=== PATIENT | female | born 1980 | race Caucasian/White ===

== ENCOUNTER 2021-06-12 17:42 | Inpatient (IN) | payer BC, OTHER ==
[2021-06-12] MEDS ORDERED: HYDROmorphone 0.5 MG/0.5 ML SYRINGE IVP STA (18:54)
[2021-06-12] MEDS ORDERED: SODIUM CHLORIDE 0.9% 1,000 ML IV STA (18:54)
[2021-06-12] MEDS ORDERED: ONDANSETRON 4 MG/2 ML VIAL IVP STA (18:54)
[2021-06-12 19:37] LABS: AST 33 U/L (14-36); African American GFR (CKD) 32 (>60 ml/min/1.73 sqM); Albumin 3.9 g/dL (3.5-5.0); Alkaline Phosphatase 128 U/L (38-126); Amylase <30 U/L (30-110); Anion Gap 18 mmol/L; Blood Urea Nitrogen 30 mg/dL (7-17); Calcium 8.2 mg/dL (8.4-10.2); Carbon Dioxide 15 mmol/L (22-30); Chloride 99 mmol/L (98-107); Glucose 113 mg/dL (74-99); Lipase <10 U/L (23-300); Non-African American GFR(CKD) 28 (>60 ml/min/1.73 sqM); Potassium 3.1 mmol/L (3.5-5.1); Sodium 132 mmol/L (137-145); Total Bilirubin 0.2 mg/dL (0.2-1.3); Total Protein 6.9 g/dL (6.3-8.2)
[2021-06-12 19:40] LABS: Appearance,Urine Turbid (Clear); Bacteria,Urine Many /hpf; Bilirubin,Urine Negative (Negative); Blood,Urine Moderate (Negative); Color,Urine Yellow; Glucose,Urine (UA) Negative (Negative); Ketones,Urine Negative (Negative); Leukocyte Esterase,Urine Large (Negative); Nitrite,Urine Positive (Negative); Protein,Urine 2+ (Negative); RBC,Urine 30 /hpf (0-5); Specific Gravity,Urine 1.019 (1.001-1.035); Squamous Epithelial Cell,Urine 30 /hpf (0-4); Urobilinogen,Urine <2.0 mg/dL (<2.0); WBC,Urine >182 /hpf (0-5)
[2021-06-12 19:42] LABS: Anisocytosis Slight; HCT 37.6 % (34.0-46.0); Hypochromasia Moderate; MCH 23.3 pg (25.0-35.0); MCHC 31.8 g/dL (31.0-37.0); MCV 73.1 fL (80.0-100.0); Mean Platelet Volume 7.4; Microcytosis Moderate; Platelet Count 280 k/uL (150-450); RBC 5.14 m/uL (3.80-5.40); RDW 18.1 % (11.5-15.5); WBC 28.1 k/uL (3.8-10.6)
[2021-06-12 19:45] LABS: ALT 28 U/L (4-34)
[2021-06-12 19:57] LABS: INR 1.2 (<1.2); Partial Thromboplastin Time 31.4 sec (22.0-30.0)
[2021-06-12] MEDS ORDERED: SODIUM CHLORIDE 0.9% 1,000 ML IV ONE (20:07)
[2021-06-12 20:30] LABS: Band Neutrophils % 10 %; Lymphocytes # (M) 0.28 k/uL (1.0-4.8); Monocytes # (M) 0.56 k/uL (0-1.0); Neutrophils % (M) 87 %; Nucleated Red Blood Cells 0 /100 WBC (0-0); Total Cells Counted 100
[2021-06-12] MEDS ORDERED: LEVOFLOXACIN 500MG-D5W PMX 500 MG in DEXTROSE/WATER 1 100ML.BAG IVPB STA (20:31)
[2021-06-12] MEDS ORDERED: metroNIDAZOLE-NS PMX 500 MG in SALINE 1 100ML.BAG IVPB STA (20:31)
--- NOTE | 2021-06-12 20:37 | CT ---
EXAMINATION TYPE: CT abdomen pelvis w con DATE OF EXAM: 06/12/2021 COMPARISON: None available. HISTORY: Abdominal pain, history of whipple surgery in 2018. Vomiting bile. CT DLP: 676.9 mGycm Automated exposure control for dose reduction was used. TECHNIQUE: Helical acquisition of images was performed from the lung bases through the pelvis. CONTRAST: Performed without Oral Contrast and with IV Contrast, patient injected with 100 mL of Isovue 300. FINDINGS: LUNG BASES: No significant abnormality is appreciated. LIVER/GB: No significant abnormality is appreciated. Hepatic steatosis. PANCREAS: No significant abnormality is seen. SPLEEN: No significant abnormality is seen. ADRENALS: No significant abnormality is seen. KIDNEYS: Moderate right hydronephrosis with 3 mm obstructing calculus at the ureteropelvic junction. Additional multiple nonobstructing bilateral renal calculi measuring up to 5 mm. No left hydronephros is. FREE AIR: No free air is visualized. RETROPERITONEAL ADENOPATHY: None visualized REPRODUCTIVE ORGANS: No significant abnormality is seen URINARY BLADDER: No significant abnormality is seen. PELVIC ADENOPATHY: None visualized. OSSEOUS STRUCTURES: No significant abnormality is seen. BOWEL: Mild fat stranding along the right paracolic gutter. No acute appendicitis. No bowel obstruct ion. Postsurgical changes in the upper abdomen involving the stomach seen. OTHER: Bilateral breast implants noted. IMPRESSION: 3 MM OBSTRUCTING RIGHT UPJ CALCULUS WITH MODERATE HYDRONEPHROSIS. ADDITIONAL MULTIPLE NONOBSTRUCTING BILATERAL RENAL CALCULI. ASSOCIATED MILD INFLAMMATORY CHANGES ALONG THE RIGHT PARACOLIC GUTTER. NO BOWEL OBSTRUCTION.
[2021-06-12] MEDS ORDERED: MORPHINE SULFATE 4 MG/ML SYRINGE IVP STA (20:42)
[2021-06-12] MEDS ORDERED: LORazepam 2 MG/ML INJ IV STA (21:07)
[2021-06-12] MEDS: POTASSIUM CHLORIDE 10 MEQ in WATER FOR INJECTION 1 100ML.BAG IVPB SCH ×2 (21:53→22:53)
[2021-06-12] MEDS ORDERED: NALOXONE 0.4 MG/ML 1 ML VIAL IV PRN (21:54)
[2021-06-12] MEDS ORDERED: ONDANSETRON 4 MG/2 ML VIAL IVP PRN (21:54)
--- NOTE | 2021-06-12 22:10 | ED ---
General Adult HPI - General Chief complaint: Abdominal Pain Stated complaint: abd pain Time Seen by Provider: 06/12/21 18:46 Source: patient, RN notes reviewed, old records reviewed Mode of arrival: ambulatory Limitations: no limitations - History of Present Illness Initial comments: 41-year-old female presenting with generalized abdominal pain, vomiting. Vomiting is bilious. She has a. 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 She did not have follow-up after this procedure. She does not report any hemotherapy her radiation. This was in 2018 and outside hospital. Patient states over the past 3 or 4 days she's had abdominal pain nausea vomiting she has not had anything to eat or drink. She denies fever. - Related Data Allergies Allergy/AdvReac Type Severity Reaction Status Date / Time metoclopramide [From Reglan] Allergy Rash/Hives Verified 06/12/21 17:51 morphine Allergy Rash/Hives Verified 06/12/21 17:51 Penicillins Allergy Anaphylaxis Verified 06/12/21 17:51 Review of Systems ROS Statement: Those systems with pertinent positive or pertinent negative responses have been documented in the HPI. ROS Other: All systems not noted in ROS Statement are negative. Past Medical History Past Surgical History: Section Additional Past Surgical History / Comment(s): Abd. Anastomosis, Truncal Vagatomy, Omental mass excision. Past Psychological History: Anxiety Smoking Status: Never smoker Past Alcohol Use History: None Reported Past Drug Use History: None Reported General Exam Limitations: no limitations General appearance: alert, in no apparent distress Head exam: Present: atraumatic. Absent: normocephalic Eye exam: Present: normal appearance, PERRL ENT exam: Present: mucous membranes dry Neck exam: Present: normal inspection. Absent: tenderness, meningismus Respiratory exam: Present: normal lung sounds bilaterally. Absent: respiratory distress, wheezes Cardiovascular Exam: Present: normal rhythm, tachycardia GI/Abdominal exam: Present: tenderness, guarding. Absent: distended Extremities exam: Present: normal inspection, normal capillary refill. Absent: pedal edema Neurological exam: Present: alert, oriented X3, CN II-XII intact Psychiatric exam: Present: anxious Skin exam: Present: warm, dry, intact, pallor Course Vital Signs 06/12/21 06/12/21 17:47 21:32 Temperature 98.9 F 98.3 F Pulse Rate 119 H 80 Respiratory 20 18 Rate Blood Pressure 109/74 107/71 O2 Sat by Pulse 100 99 Oximetry Medical Decision Making - Medical Decision Making 41-year-old female visiting with generalized abdominal pain nausea vomiting. Workup is initiated for this patient. She is tachycardic and profound dehydrated on exam. She has significant lab abnormalities, she has a white blood cell count 20,000, microcytic anemia. She has potassium 3.1 she is acidotic with a CO2 of 15. She is in acute kidney failure with a BUN of 30 and a creatinine of 2.12. She has a lactic acid of 2.6. Urinalysis is suggestive of significant infection with greater than 182 white cells nitrate positive. I did perform a CT of the abdomen with contrast to evaluate her complaint. This shows a 3 mm obstructing stone with right-sided hydronephrosis. She is started on IV antibiotics. Blood cultures are obtained. She has an ALLERGY to penici llin which is anaphylactic. She started on Levaquin and Flagyl for the possibility of concurrent intra-abdominal issue. I discussed case with the admitting physician Dr. Charles, general surgery Dr. Torres, and urology Dr. Carvajal. The patient will be kept nothing by mouth. NG tube will be inserted for vomiting. Electrolytes are replaced, IV potassium. Continuous IV fluids of been ordered. Patient will be given pain control and antiemetics. - Lab Data Result diagrams: 06/12/21 19:15 06/12/21 19:15 Lab Results 06/12/21 06/12/21 06/12/21 Range/Units 19:15 19:15 19:15 WBC 28.1 H (3.8-10.6) k/uL RBC 5.14 (3.80-5.40) m/uL Hgb 12.0 (11.4-16.0) gm/dL Hct 37.6 (34.0-46.0) % MCV 73.1 L (80.0-100.0) fL MCH 23.3 L (25.0-35.0) pg MCHC 31.8 (31.0-37.0) g/dL RDW 18.1 H (11.5-15.5) % Plt Count 280 (150-450) k/uL MPV 7.4 Neutrophils % (Manual) 87 % Band Neuts % (Manual) 10 % Lymphocytes % (Manual) 1 % Monocytes % (Manual) 2 % Neutrophils # (Manual) 27.20 H (1.3-7.7) k/uL Lymphocytes # (Manual) 0.28 L (1.0-4.8) k/uL Monocytes # (Manual) 0.56 (0-1.0) k/uL Nucleated RBCs 0 (0-0) /100 WBC Manual Slide Review Performed Hypochromasia Moderate Anisocytosis Slight Microcytosis Moderate PT 12.0 (9.0-12.0) sec INR 1.2 H (<1.2) APTT 31.4 H (22.0-30.0) sec Sodium (137-145) mmol/L Potassium (3.5-5.1) mmol/L Chloride (98-107) mmol/L Carbon Dioxide (22-30) mmol/L Anion Gap mmol/L BUN (7-17) mg/dL Creatinine (0.52-1.04) mg/dL Est GFR (CKD-EPI)AfAm (>60 ml/min/1.73 sqM) Est GFR (CKD-EPI)NonAf (>60 ml/min/1.73 sqM) Glucose (74-99) mg/dL Plasma Lactic Acid Benigno (0.7-2.0) mmol/L Calcium (8.4-10.2) mg/dL Total Bilirubin (0.2-1.3) mg/dL AST (14-36) U/L ALT (4-34) U/L Alkaline Phosphatase (38-126) U/L Total Protein (6.3-8.2) g/dL Albumin (3.5-5.0) g/dL Amylase (30-110) U/L Lipase (23-300) U/L Urine Color Yellow Urine Appearance Turbid H (Clear) Urine pH 6.0 (5.0-8.0) Ur Specific Ava 1.019 (1.001-1.035) Urine Protein 2+ H (Negative) Urine Glucose (UA) Negative (Negative) Urine Ketones Negative (Negative) Urine Blood Moderate H (Negative) Urine Nitrite Positive H (Negative) Urine Bilirubin Negative (Negative) Urine Urobilinogen <2.0 (<2.0) mg/dL Ur Leukocyte Esterase Large H (Negative) Urine RBC 30 H (0-5) /hpf Urine WBC >182 H (0-5) /hpf Urine WBC Clumps Many H (None) /hpf Ur Squamous Epith Cells 30 H (0-4) /hpf Urine Bacteria Many H (None) /hpf 06/12/21 06/12/21 Range/Units 19:15 19:15 WBC (3.8-10.6) k/uL RBC (3.80-5.40) m/uL Hgb (11.4-16.0) gm/dL Hct (34.0-46.0) % MCV (80.0-100.0) fL MCH (25.0-35.0) pg MCHC (31.0-37.0) g/dL RDW (11.5-15.5) % Plt Count (150-450) k/uL MPV Neutrophils % (Manual) % Band Neuts % (Manual) % Lymphocytes % (Manual) % Monocytes % (Manual) % Neutrophils # (Manual) (1.3-7.7) k/uL Lymphocytes # (Manual) (1.0-4.8) k/uL Monocytes # (Manual) (0-1.0) k/uL Nucleated RBCs (0-0) /100 WBC Manual Slide Review Hypochromasia Anisocytosis Microcytosis PT (9.0-12.0) sec INR (<1.2) APTT (22.0-30.0) sec Sodium 132 L (137-145) mmol/L Potassium 3.1 L (3.5-5.1) mmol/L Chloride 99 (98-107) mmol/L Carbon Dioxide 15 L (22-30) mmol/L Anion Gap 18 mmol/L BUN 30 H (7-17) mg/dL Creatinine 2.12 H (0.52-1.04) mg/dL Est GFR (CKD-EPI)AfAm 32 (>60 ml/min/1.73 sqM) Est GFR (CKD-EPI)NonAf 28 (>60 ml/min/1.73 sqM) Glucose 113 H (74-99) mg/dL Plasma Lactic Acid Benigno 2.6 H* (0.7-2.0) mmol/L Calcium 8.2 L (8.4-10.2) mg/dL Total Bilirubin 0.2 (0.2-1.3) mg/dL AST 33 (14-36) U/L ALT 28 (4-34) U/L Alkaline Phosphatase 128 H (38-126) U/L Total Protein 6.9 (6.3-8.2) g/dL Albumin 3.9 (3.5-5.0) g/dL Amylase <30 L (30-110) U/L Lipase <10 L (23-300) U/L Urine Color Urine Appearance (Clear) Urine pH (5.0-8.0) Ur Specific Ava (1.001-1.035) Urine Protein (Negative) Urine Glucose (UA) (Negative) Urine Ketones (Negative) Urine Blood (Negative) Urine Nitrite (Negative) Urine Bilirubin (Negative) Urine Urobilinogen (<2.0) mg/dL Ur Leukocyte Esterase (Negative) Urine RBC (0-5) /hpf Urine WBC (0-5) /hpf Urine WBC Clumps (None) /hpf Ur Squamous Epith Cells (0-4) /hpf Urine Bacteria (None) /hpf Critical Care Time Critical Care Time: Yes Total Critical Care Time: 35 Disposition Clinical Impression: Bilious vomiting, Hydronephrosis with renal and ureteral calculous obstruction, Pyelonephritis Disposition: ADMITTED IP TO THIS [facility] Condition: Stable Is patient prescribed a controlled substance at d/c from ED?: No Referrals: Darryl Charles MD [Primary Care Provider] - 1-2 days Decision to Admit Reason: Admit from EC Decision Date: 06/12/21 Decision Time: 22:09
[2021-06-12] MEDS: SODIUM CHLORIDE 0.9% 1,000 ML IV SCH (23:04)
[2021-06-13] MEDS: POTASSIUM CHLORIDE 10 MEQ in WATER FOR INJECTION 1 100ML.BAG IVPB SCH ×2 (00:51→07:17)
[2021-06-13] MEDS: HYDROmorphone 1 MG/ML 1 ML SYRINGE IVP PRN ×4 (01:22→21:44)
[2021-06-13] MEDS: SODIUM CHLORIDE 0.9% 1,000 ML IV SCH (07:17)
[2021-06-13] MEDS: ONDANSETRON 4 MG/2 ML VIAL IVP PRN ×3 (08:20→23:29)
[2021-06-13 09:27] LABS: Anisocytosis Slight; Basophils % (A) 0 %; Eosinophils % (A) 0 %; HGB 10.5 gm/dL (11.4-16.0); Hypochromasia Moderate; Lymphocytes # (A) 0.2 k/uL (1.0-4.8); Lymphocytes % (A) 1 %; MCH 22.5 pg (25.0-35.0); MCHC 30.7 g/dL (31.0-37.0); MCV 73.2 fL (80.0-100.0); Mean Platelet Volume 7.1; Microcytosis Moderate; Monocytes # (A) 0.4 k/uL (0-1.0); Monocytes % (A) 2 %; Neutrophils % (A) 96 %; Platelet Count 242 k/uL (150-450); RBC 4.65 m/uL (3.80-5.40); RDW 18.5 % (11.5-15.5); WBC 20.7 k/uL (3.8-10.6)
--- NOTE | 2021-06-13 09:31 | P.GSCN ---
History of Present Illness Consult date: 06/13/21 History of present illness: This is a 41 yo female presented to the hospital with right flank pain, abdominal pain and nausea and vomiting. Denies any fever/chills. She underwent a CT abdomen/pelvis showed a 3 mm right sided proximal stone with hydronephrosis. Her UA on presentation is concerning for UTI. She denies any dysuria or gross hematuria. Indicates that her pain is 7/10. No previous hx of stones Review of Systems - Constitutional Reports lethargy, Denies chills, Denies fever - EENT Ears, nose, mouth and throat: Denies dysphagia - Cardiovascular Denies chest pain, Denies shortness of breath - Respiratory Denies cough, Denies 7 - Gastrointestinal Reports abdominal pain, Reports nausea, Reports vomiting - Genitourinary Genitourinary: Denies dysuria, Denies hematuria - Integumentary Denies rash, Denies unusual bruising - Neurological Denies headaches, Denies syncope Past Medical History Past Medical History: GERD/Reflux, Hypertension, Thyroid Disorder History of Any Multi-Drug Resistant Organisms: None Reported Past Surgical History: Section Additional Past Surgical History / Comment(s): Abd. Anastomosis, Truncal Vagatomy, Omental mass excision. Past Anesthesia/Blood Transfusion Reactions: No Reported Reaction Past Psychological History: Anxiety, Depression Smoking Status: Never smoker Past Alcohol Use History: None Reported Past Drug Use History: None Reported Medications and Allergies Home Medications Medication Instructions Recorded Confirmed Type ALPRAZolam [Xanax] 0.5 mg PO DAILY 06/12/21 06/12/21 History Atenolol [Tenormin] 50 mg PO BID 06/12/21 06/12/21 History Dextroamphetamine/Amphetamine 20 mg PO BID 06/12/21 06/12/21 History [Adderall] Levothyroxine Sodium [Synthroid] 125 mcg PO DAILY 06/12/21 06/12/21 History buPROPion SR [Wellbutrin SR] 150 mg PO BID 06/12/21 06/12/21 History Allergies Allergy/AdvReac Type Severity Reaction Status Date / Time metoclopramide [From Reglan] Allergy Rash/Hives Verified 06/12/21 23:15 morphine Allergy Rash/Hives Verified 06/12/21 23:15 Penicillins Allergy Anaphylaxis Verified 06/12/21 23:15 Surgical - Exam Vital Signs Temp Pulse Resp BP Pulse Ox 98.9 F 119 H 20 109/74 100 06/12/21 17:47 06/12/21 17:47 06/12/21 17:47 06/12/21 17:47 06/12/21 17:47 - General no distress, moderate pain - Eyes PERRL, normal ocular movement - ENT normal nares, normal mucosa - Respiratory normal expansion, normal respiratory effort - Abdomen Abdomen: soft, tender (RLQ, right flanl ) - Psychiatric oriented to time, oriented to person, oriented to place Results - Labs 06/12/21 19:15 06/12/21 19:15 Abnormal Lab Results - Last 24 Hours (Table) 06/12/21 06/12/21 06/12/21 Range/Units 19:15 19:15 19:15 WBC 28.1 H (3.8-10.6) k/uL MCV 73.1 L (80.0-100.0) fL MCH 23.3 L (25.0-35.0) pg RDW 18.1 H (11.5-15.5) % Neutrophils # (Manual) 27.20 H (1.3-7.7) k/uL Lymphocytes # (Manual) 0.28 L (1.0-4.8) k/uL INR 1.2 H (<1.2) APTT 31.4 H (22.0-30.0) sec Sodium (137-145) mmol/L Potassium (3.5-5.1) mmol/L Carbon Dioxide (22-30) mmol/L BUN (7-17) mg/dL Creatinine (0.52-1.04) mg/dL Glucose (74-99) mg/dL Plasma Lactic Acid Benigno (0.7-2.0) mmol/L Calcium (8.4-10.2) mg/dL Alkaline Phosphatase (38-126) U/L Amylase (30-110) U/L Lipase (23-300) U/L Urine Appearance Turbid H (Clear) Urine Protein 2+ H (Negative) Urine Blood Moderate H (Negative) Urine Nitrite Positive H (Negative) Ur Leukocyte Esterase Large H (Negative) Urine RBC 30 H (0-5) /hpf Urine WBC >182 H (0-5) /hpf Urine WBC Clumps Many H (None) /hpf Ur Squamous Epith Cells 30 H (0-4) /hpf Urine Bacteria Many H (None) /hpf 06/12/21 06/12/21 Range/Units 19:15 19:15 WBC (3.8-10.6) k/uL MCV (80.0-100.0) fL MCH (25.0-35.0) pg RDW (11.5-15.5) % Neutrophils # (Manual) (1.3-7.7) k/uL Lymphocytes # (Manual) (1.0-4.8) k/uL INR (<1.2) APTT (22.0-30.0) sec Sodium 132 L (137-145) mmol/L Potassium 3.1 L (3.5-5.1) mmol/L Carbon Dioxide 15 L (22-30) mmol/L BUN 30 H (7-17) mg/dL Creatinine 2.12 H (0.52-1.04) mg/dL Glucose 113 H (74-99) mg/dL Plasma Lactic Acid Benigno 2.6 H* (0.7-2.0) mmol/L Calcium 8.2 L (8.4-10.2) mg/dL Alkaline Phosphatase 128 H (38-126) U/L Amylase <30 L (30-110) U/L Lipase <10 L (23-300) U/L Urine Appearance (Clear) Urine Protein (Negative) Urine Blood (Negative) Urine Nitrite (Negative) Ur Leukocyte Esterase (Negative) Urine RBC (0-5) /hpf Urine WBC (0-5) /hpf Urine WBC Clumps (None) /hpf Ur Squamous Epith Cells (0-4) /hpf Urine Bacteria (None) /hpf Microbiology - Last 24 Hours (Table) 06/12/21 19:15 Urine Culture - Preliminary Urine,Voided Diabetes panel 06/12/21 Range/Units 19:15 Sodium 132 L (137-145) mmol/L Potassium 3.1 L (3.5-5.1) mmol/L Chloride 99 (98-107) mmol/L Carbon Dioxide 15 L (22-30) mmol/L BUN 30 H (7-17) mg/dL Creatinine 2.12 H (0.52-1.04) mg/dL Glucose 113 H (74-99) mg/dL Calcium 8.2 L (8.4-10.2) mg/dL AST 33 (14-36) U/L ALT 28 (4-34) U/L Alkaline Phosphatase 128 H (38-126) U/L Total Protein 6.9 (6.3-8.2) g/dL Albumin 3.9 (3.5-5.0) g/dL Calcium panel 06/12/21 Range/Units 19:15 Calcium 8.2 L (8.4-10.2) mg/dL Albumin 3.9 (3.5-5.0) g/dL Pituitary panel 06/12/21 Range/Units 19:15 Sodium 132 L (137-145) mmol/L Potassium 3.1 L (3.5-5.1) mmol/L Chloride 99 (98-107) mmol/L Carbon Dioxide 15 L (22-30) mmol/L BUN 30 H (7-17) mg/dL Creatinine 2.12 H (0.52-1.04) mg/dL Glucose 113 H (74-99) mg/dL Calcium 8.2 L (8.4-10.2) mg/dL Adrenal panel 06/12/21 Range/Units 19:15 Sodium 132 L (137-145) mmol/L Potassium 3.1 L (3.5-5.1) mmol/L Chloride 99 (98-107) mmol/L Carbon Dioxide 15 L (22-30) mmol/L BUN 30 H (7-17) mg/dL Creatinine 2.12 H (0.52-1.04) mg/dL Glucose 113 H (74-99) mg/dL Calcium 8.2 L (8.4-10.2) mg/dL Total Bilirubin 0.2 (0.2-1.3) mg/dL AST 33 (14-36) U/L ALT 28 (4-34) U/L Alkaline Phosphatase 128 H (38-126) U/L Total Protein 6.9 (6.3-8.2) g/dL Albumin 3.9 (3.5-5.0) g/dL Assessment and Plan Assessment: 41 yo female admitted with 3 mm right sided ureteral stone with hydronephrosis, Her UA concerning for UTI, WBC 28k on admission. Discussed given her UTI and leuocytosis I recommend proceeding with stent placement. Discussed She will need Ureteroscopy in the future to address her stone, and stent can not stay in permanently. -OR for right sided stent placement -F/U on urine culture, Continue the Levaquin
[2021-06-13 09:33] LABS: Albumin 3.1 g/dL (3.5-5.0); Calcium 8.2 mg/dL (8.4-10.2); Magnesium 1.7 mg/dL (1.6-2.3); Potassium 3.2 mmol/L (3.5-5.1); Total Bilirubin 0.1 mg/dL (0.2-1.3)
[2021-06-13] MEDS ORDERED: IV FLUID CONTINUATION 1,000 ML IV ONE (10:48)
[2021-06-13] MEDS ORDERED: MIDAZOLAM 2 MG/2 ML VIAL IVP ONE (11:19)
[2021-06-13] MEDS ORDERED: LACTATED RINGERS 1,000 ML IV ONE (12:11)
[2021-06-13] MEDS ORDERED: PROPOFOL 10 MG/ML 20 ML VIAL IV ONE (12:20)
[2021-06-13] MEDS ORDERED: fentaNYL (PF) 50 MCG/ML 2 ML AMP ONE (12:20)
[2021-06-13] MEDS ORDERED: SUCCINYLCHOLINE CHLORIDE 100 MG/5 ML SYR IV ONE (12:20)
[2021-06-13] MEDS ORDERED: MIDAZOLAM 2 MG/2 ML VIAL ONE (12:20)
[2021-06-13] MEDS ORDERED: VANCOMYCIN 1,000 MG in SODIUM CHLORIDE 0.9% 250 ML IVPB STA (12:47)
--- NOTE | 2021-06-13 13:03 | FL ---
EXAMINATION TYPE: FL guidance operating room DATE OF EXAM: 06/13/2021 HISTORY: Fluoroscopy time 1 seconds of fluoroscopy provided. IMPRESSION: 1. Fluoroscopy time.
--- NOTE | 2021-06-13 14:15 | P.GSCN ---
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 Sierra. Patient also had prior . Patient presents to the emergency room with complaints of right abdominal flank pain that radiates into the right groin. Patient has had symptoms for the last 5 days. She's had continuous nausea and vomiting. She had a computed tomography scan of the abdomen and pelvis completed showing a 3 mm obstructing right UPJ calculus with moderate hydronephrosis. Additional multiple nonobstructing bilateral renal calculi. Associated mild inflammation to a changes along the right paracolic gutter. No bowel obstruction. Patient seen by urology and she is scheduled for cystoscopy with stent today. Patient denies any fever chills or sweats. She reports having bowel movements. She denies any difficulty with urinating. PAST MEDICAL HISTORY: See list. PAST SURGICAL HISTORY: See list. MEDICATIONS: See list. ALLERGIES: See list. SOCIAL HISTORY: No illicit drug use. REVIEW OF SYSTEMS: CONSTITUTIONAL: Denies fever or chills. HEENT: Denies blurred vision, vision changes, or eye pain. Denies hemoptysis CARDIOVASCULAR: Denies chest pain or pressure. RESPIRATORY: No shortness of breath. GASTROINTESTINAL: See HPI for pertinent findings HEMATOLOGIC: Denies bleeding disorders. GENITOURINARY: Denies any blood in urine or increased urinary frequency. SKIN: Denies pruitis. Denies rash. PHYSICAL EXAM: VITAL SIGNS: Reviewed GENERAL: Well-developed in no acute distress. HEENT: No sclera icterus. Extraocular movements grossly intact. Moist buccal mucosa. Head is atraumatic, normocephalic. No nasal drainage. ABDOMEN: Soft. Nondistended. Right flank tenderness NEUROLOGIC: Alert and oriented. Cranial nerves II through XII grossly intact. LABORATORY DATA: WBC 28.1 down to 20.7 hemoglobin 10.5 Sodium 134 potassium 3.2 creatinine down from 2.12-1.68 Lactic 2.6 down to 1.6 Magnesium 1.7 UA positive for infection IMAGING: CAT scan findings as stated above ASSESSMENT: 1. Right flank pain that radiates to growing likely secondary to right ureteral stone 2. Right ureter stone and hydronephrosis 3. UTI 4. History of Cholelithiasis PLAN: -Continue urological workup -No surgical intervention planned per general surgery -Further workup for cholelithiasis will be completed outpatient -Continue supportive care -Continue antiemetics Thank you for this consultation Physician Digital Director note has been reviewed by physician. Signing provider agrees with the documented findings, assessment, and plan of care. Past Medical History Past Medical History: GERD/Reflux, Hypertension, Thyroid Disorder History of Any Multi-Drug Resistant Organisms: None Reported Past Surgical History: Section Additional Past Surgical History / Comment(s): Abd. Anastomosis, Truncal Vagatomy, Omental mass excision. Past Anesthesia/Blood Transfusion Reactions: No Reported Reaction Past Psychological History: Anxiety, Depression Smoking Status: Never smoker Past Alcohol Use History: None Reported Past Drug Use History: None Reported Medications and Allergies Home Medications Medication Instructions Recorded Confirmed Type ALPRAZolam [Xanax] 0.5 mg PO DAILY 06/12/21 06/12/21 History Atenolol [Tenormin] 50 mg PO BID 06/12/21 06/12/21 History Dextroamphetamine/Amphetamine 20 mg PO BID 06/12/21 06/12/21 History [Adderall] Levothyroxine Sodium [Synthroid] 125 mcg PO DAILY 06/12/21 06/12/21 History buPROPion SR [Wellbutrin SR] 150 mg PO BID 06/12/21 06/12/21 History Allergies Allergy/AdvReac Type Severity Reaction Status Date / Time metoclopramide [From Reglan] Allergy Rash/Hives Verified 06/12/21 23:15 morphine Allergy Rash/Hives Verified 06/12/21 23:15 Penicillins Allergy Anaphylaxis Verified 06/12/21 23:15 Surgical - Exam Vital Signs Temp Pulse Resp BP Pulse Ox 98.9 F 119 H 20 109/74 100 06/12/21 17:47 06/12/21 17:47 06/12/21 17:47 06/12/21 17:47 06/12/21 17:47 Results - Labs 06/13/21 08:42 06/13/21 08:42 Abnormal Lab Results - Last 24 Hours (Table) 06/12/21 06/12/21 06/12/21 Range/Units 19:15 19:15 19:15 WBC 28.1 H (3.8-10.6) k/uL Hgb (11.4-16.0) gm/dL MCV 73.1 L (80.0-100.0) fL MCH 23.3 L (25.0-35.0) pg MCHC (31.0-37.0) g/dL RDW 18.1 H (11.5-15.5) % Neutrophils # (1.3-7.7) k/uL Neutrophils # (Manual) 27.20 H (1.3-7.7) k/uL Lymphocytes # (1.0-4.8) k/uL Lymphocytes # (Manual) 0.28 L (1.0-4.8) k/uL INR 1.2 H (<1.2) APTT 31.4 H (22.0-30.0) sec Sodium (137-145) mmol/L Potassium (3.5-5.1) mmol/L Carbon Dioxide (22-30) mmol/L BUN (7-17) mg/dL Creatinine (0.52-1.04) mg/dL Glucose (74-99) mg/dL Plasma Lactic Acid Benigno (0.7-2.0) mmol/L Calcium (8.4-10.2) mg/dL Total Bilirubin (0.2-1.3) mg/dL Alkaline Phosphatase (38-126) U/L Total Protein (6.3-8.2) g/dL Albumin (3.5-5.0) g/dL Amylase (30-110) U/L Lipase (23-300) U/L Urine Appearance Turbid H (Clear) Urine Protein 2+ H (Negative) Urine Blood Moderate H (Negative) Urine Nitrite Positive H (Negative) Ur Leukocyte Esterase Large H (Negative) Urine RBC 30 H (0-5) /hpf Urine WBC >182 H (0-5) /hpf Urine WBC Clumps Many H (None) /hpf Ur Squamous Epith Cells 30 H (0-4) /hpf Urine Bacteria Many H (None) /hpf 06/12/21 06/12/21 06/13/21 Range/Units 19:15 19:15 08:42 WBC 20.7 H (3.8-10.6) k/uL Hgb 10.5 L (11.4-16.0) gm/dL MCV 73.2 L (80.0-100.0) fL MCH 22.5 L (25.0-35.0) pg MCHC 30.7 L (31.0-37.0) g/dL RDW 18.5 H (11.5-15.5) % Neutrophils # 20.0 H (1.3-7.7) k/uL Neutrophils # (Manual) (1.3-7.7) k/uL Lymphocytes # 0.2 L (1.0-4.8) k/uL Lymphocytes # (Manual) (1.0-4.8) k/uL INR (<1.2) APTT (22.0-30.0) sec Sodium 132 L (137-145) mmol/L Potassium 3.1 L (3.5-5.1) mmol/L Carbon Dioxide 15 L (22-30) mmol/L BUN 30 H (7-17) mg/dL Creatinine 2.12 H (0.52-1.04) mg/dL Glucose 113 H (74-99) mg/dL Plasma Lactic Acid Benigno 2.6 H* (0.7-2.0) mmol/L Calcium 8.2 L (8.4-10.2) mg/dL Total Bilirubin (0.2-1.3) mg/dL Alkaline Phosphatase 128 H (38-126) U/L Total Protein (6.3-8.2) g/dL Albumin (3.5-5.0) g/dL Amylase <30 L (30-110) U/L Lipase <10 L (23-300) U/L Urine Appearance (Clear) Urine Protein (Negative) Urine Blood (Negative) Urine Nitrite (Negative) Ur Leukocyte Esterase (Negative) Urine RBC (0-5) /hpf Urine WBC (0-5) /hpf Urine WBC Clumps (None) /hpf Ur Squamous Epith Cells (0-4) /hpf Urine Bacteria (None) /hpf 06/13/21 Range/Units 08:42 WBC (3.8-10.6) k/uL Hgb (11.4-16.0) gm/dL MCV (80.0-100.0) fL MCH (25.0-35.0) pg MCHC (31.0-37.0) g/dL RDW (11.5-15.5) % Neutrophils # (1.3-7.7) k/uL Neutrophils # (Manual) (1.3-7.7) k/uL Lymphocytes # (1.0-4.8) k/uL Lymphocytes # (Manual) (1.0-4.8) k/uL INR (<1.2) APTT (22.0-30.0) sec Sodium 134 L (137-145) mmol/L Potassium 3.2 L (3.5-5.1) mmol/L Carbon Dioxide 13 L (22-30) mmol/L BUN 30 H (7-17) mg/dL Creatinine 1.68 H (0.52-1.04) mg/dL Glucose 109 H (74-99) mg/dL Plasma Lactic Acid Benigno (0.7-2.0) mmol/L Calcium 8.2 L (8.4-10.2) mg/dL Total Bilirubin 0.1 L (0.2-1.3) mg/dL Alkaline Phosphatase 135 H (38-126) U/L Total Protein 6.0 L (6.3-8.2) g/dL Albumin 3.1 L (3.5-5.0) g/dL Amylase (30-110) U/L Lipase (23-300) U/L Urine Appearance (Clear) Urine Protein (Negative) Urine Blood (Negative) Urine Nitrite (Negative) Ur Leukocyte Esterase (Negative) Urine RBC (0-5) /hpf Urine WBC (0-5) /hpf Urine WBC Clumps (None) /hpf Ur Squamous Epith Cells (0-4) /hpf Urine Bacteria (None) /hpf Microbiology - Last 24 Hours (Table) 06/12/21 21:23 Blood Culture Gram Stain - Preliminary Blood 06/12/21 21:23 Blood Culture Gram Stain - Preliminary Blood 06/12/21 21:23 Blood Culture - Final Blood 06/12/21 21:23 Blood Culture - Final Blood 06/12/21 19:15 Urine Culture - Preliminary Urine,Voided Diabetes panel 06/12/21 06/13/21 Range/Units 19:15 08:42 Sodium 132 L 134 L (137-145) mmol/L Potassium 3.1 L 3.2 L (3.5-5.1) mmol/L Chloride 99 107 (98-107) mmol/L Carbon Dioxide 15 L 13 L (22-30) mmol/L BUN 30 H 30 H (7-17) mg/dL Creatinine 2.12 H 1.68 H (0.52-1.04) mg/dL Glucose 113 H 109 H (74-99) mg/dL Calcium 8.2 L 8.2 L (8.4-10.2) mg/dL AST 33 23 (14-36) U/L ALT 28 16 (4-34) U/L Alkaline Phosphatase 128 H 135 H (38-126) U/L Total Protein 6.9 6.0 L (6.3-8.2) g/dL Albumin 3.9 3.1 L (3.5-5.0) g/dL Calcium panel 06/12/21 06/13/21 Range/Units 19:15 08:42 Calcium 8.2 L 8.2 L (8.4-10.2) mg/dL Albumin 3.9 3.1 L (3.5-5.0) g/dL Pituitary panel 06/12/21 06/13/21 Range/Units 19:15 08:42 Sodium 132 L 134 L (137-145) mmol/L Potassium 3.1 L 3.2 L (3.5-5.1) mmol/L Chloride 99 107 (98-107) mmol/L Carbon Dioxide 15 L 13 L (22-30) mmol/L BUN 30 H 30 H (7-17) mg/dL Creatinine 2.12 H 1.68 H (0.52-1.04) mg/dL Glucose 113 H 109 H (74-99) mg/dL Calcium 8.2 L 8.2 L (8.4-10.2) mg/dL Adrenal panel 06/12/21 06/13/21 Range/Units 19:15 08:42 Sodium 132 L 134 L (137-145) mmol/L Potassium 3.1 L 3.2 L (3.5-5.1) mmol/L Chloride 99 107 (98-107) mmol/L Carbon Dioxide 15 L 13 L (22-30) mmol/L BUN 30 H 30 H (7-17) mg/dL Creatinine 2.12 H 1.68 H (0.52-1.04) mg/dL Glucose 113 H 109 H (74-99) mg/dL Calcium 8.2 L 8.2 L (8.4-10.2) mg/dL Total Bilirubin 0.2 0.1 L (0.2-1.3) mg/dL AST 33 23 (14-36) U/L ALT 28 16 (4-34) U/L Alkaline Phosphatase 128 H 135 H (38-126) U/L Total Protein 6.9 6.0 L (6.3-8.2) g/dL Albumin 3.9 3.1 L (3.5-5.0) g/dL
[2021-06-13] MEDS ORDERED: ALPRAZolam 0.5 MG TAB PO PRN (17:00)
[2021-06-13] MEDS: CEFEPIME 2 GM in SODIUM CHLORIDE 0.9% 100 ML IVPB SCH (17:11)
[2021-06-13] MEDS ORDERED: LEVOFLOXACIN 500MG-D5W PMX 500 MG in DEXTROSE/WATER 1 100ML.BAG IVPB SCH (19:00)
[2021-06-13] MEDS ORDERED: LEVOFLOXACIN 250MG-D5W PMX 250 MG in DEXTROSE/WATER 1 50ML.BAG IVPB SCH (21:00)
--- NOTE | 2021-06-13 21:39 | P.OP ---
Date of Procedure: 06/13/21 Preoperative Diagnosis: right ureteral stone Postoperative Diagnosis: same Procedure(s) Performed: cystoscopy and right stent insertion Implants: 6 Fr X 26 cm stent Anesthesia: ZOILA Surgeon: Markie Carvajal Estimated Blood Loss (ml): 1 Pathology: none sent Condition: stable Disposition: PACU Indications for Procedure: 41 yo female presented to the hospital with UTI and 3 mm right sided urerteral stone. on presentation her WBC was 28 K, she is symptomatic from her stones. Discussed the option of doing stent placement. Discussed risk and benefit of the procedure. discussed risk of stent encrustation and the eventual need for ureteroscopy to address her stone once her UTI is cleared Description of Procedure: Patient was brought to the operating room, general anesthesia was induced. She was prepped and draped in sterile fashion placed in dorsal lithotomy position. Cystoscopy fitted with a 21-Slovenian sheath was inserted per urethra, cystoscopy was performed showed no abnormality within the bladder. Attention was then carried to the right ureteral orifice which was intubated with a sensor wire. Next a ureteral stent was passed over the wire, the proximal curl was visualized on fluoroscopy and the distal curl was visualized using the scope. The bladder was emptied at the end of the case. Patient tolerated the procedure well was taken to PACU in stable condition
[2021-06-13] MEDS: atenoloL 50 MG TAB PO SCH (21:45)
--- NOTE | 2021-06-13 23:06 | P.CONS ---
History of Present Illness - Reason for Consult Consult date: 06/13/21 Bacteremia Requesting physician: Darryl Charles - Chief Complaint right flank pain x 1 day - History of Present Illness History of present illness : Patient is 41-year-old female presented to the ER last night for evaluation of right-sided abdominal/flank pain that started suddenly the day of presentation to the hospital describing the pain to be sharp intensity almost 10 out of 10 with some radiation to the right abdominal area patient did have associated nausea and vomiting patient denies having any fever or any chills with the symptom the patient was in the hospital on arrival to the ER the patient was afebrile did have a low-grade fever 100.2 this afternoon patient did have white count of 28.1 with elevated BUN and creatinine as well as lactic acid patient did have blood cultures drawn which are current growing gram-negative bacilli patient did have a CT of abdominal pelvis moderate right-sided hydronephrosis with 3 mm obstructing calculus at ure teropelvic junction patient subsequently has been evaluated by urology services and the patient is status post cystoscopy with ureteral stent blood cultures came back positive with gram-negative bacilli patient did have a penicillin allergy she was started on Levaquin infectious disease was consulted for further management of antibiotic therapy Review of system: CONSTITUTIONAL: Positive for weakness along with the fever. EYES: No complaint. ENT: No complaint. RESPIRATORY: No complaint. CARDIOVASCULAR: No complaint. GENITOURINARY: As per history of present illness. GASTROINTESTINAL: As per history of present illness. MUSCULOSKELETAL: No complaint. INTEGUMENTARY: No complaint. PSYCHOLOGIC: No complaint. ENDOCRINE: No complaint. NEUROLOGIC: No complaint. Past medical history : Reviewed, documented below Past surgical history : Reviewed, documented below Social history: Reviewed, documented below Medications: Reviewed, as documented below EXAMINATION: Vital sigans= Reviewed and documented below GENERAL DESCRIPTION: Middle-aged male lying in bed, no distress. No tachypnea or accessory muscle of respiration use. HEENT: Shows Pallor , no scleral icterus. Oral mucous membrane is dry. NECK: Trachea central, no thyromegaly. LUNGS: Unlabored breathing. Clear to auscultation anteriorly. No wheeze or crackle. HEART: S1, S2, regular rate and rhythm. ABDOMEN: Soft, right flank tenderness ,no guarding or rigidity EXTREMITIES: No edema of feet. SKIN: No rash, no masses palpable. NEUROLOGICAL: The patient is awake, alert, oriented x3, mood and affect normal. LABS AND RADIOLOGY: Reviewed results see below Assessment : 1-patient with gram-negative bacteremia source is complicated right-sided pyelonephritis in this patient did have right-sided hydronephrosis requiring cystoscopy and ureteral stent placement and will need to cover for enteric gram-negative to be the likely pathogen 2-patient with a penicillin allergy that have limited number of antibiotics safe to use but no history of anaphylaxis Plan: 1-discontinue Levaquin 2-cefepime 2 g every 12 hours 3-gentle IV fluid We will follow on clinical condition and cultures to further adjust medication if needed Past Medical History Past Medical History: GERD/Reflux, Hypertension, Thyroid Disorder History of Any Multi-Drug Resistant Organisms: None Reported Past Surgical History: Section Additional Past Surgical History / Comment(s): Abd. Anastomosis, Truncal Vagatomy, Omental mass excision. Past Anesthesia/Blood Transfusion Reactions: No Reported Reaction Past Psychological History: Anxiety, Depression Smoking Status: Never smoker Past Alcohol Use History: None Reported Past Drug Use History: None Reported Medications and Allergies Home Medications Medication Instructions Recorded Confirmed Type ALPRAZolam [Xanax] 0.5 mg PO DAILY 06/12/21 06/12/21 History Atenolol [Tenormin] 50 mg PO BID 06/12/21 06/12/21 History Dextroamphetamine/Amphetamine 20 mg PO BID 06/12/21 06/12/21 History [Adderall] Levothyroxine Sodium [Synthroid] 125 mcg PO DAILY 06/12/21 06/12/21 History buPROPion SR [Wellbutrin SR] 150 mg PO BID 06/12/21 06/12/21 History Allergies Allergy/AdvReac Type Severity Reaction Status Date / Time metoclopramide [From Reglan] Allergy Rash/Hives Verified 06/12/21 23:15 morphine Allergy Rash/Hives Verified 06/12/21 23:15 Penicillins Allergy Anaphylaxis Verified 06/12/21 23:15 Physical Exam Vitals: Vital Signs Temp Pulse Pulse Pulse Resp BP BP 06/13/21 13:31 101 H 16 130/79 06/13/21 13:15 103 H 16 133/78 06/13/21 13:00 110 H 16 124/74 06/13/21 12:56 99 F 114 H 16 139/73 06/13/21 12:00 98.9 F 101 H 20 133/64 06/13/21 11:27 94 16 141/91 06/13/21 10:54 98.3 F 100 18 150/101 06/13/21 08:00 98.7 F 95 20 128/82 06/13/21 04:00 98.2 F 82 18 118/65 06/12/21 23:30 97.8 F 18 111/78 06/12/21 23:05 86 18 113/70 06/12/21 21:32 98.3 F 80 18 107/71 06/12/21 17:47 98.9 F 119 H 20 109/74 Pulse Ox 06/13/21 13:31 96 06/13/21 13:15 96 06/13/21 13:00 96 06/13/21 12:56 96 06/13/21 12:00 98 06/13/21 11:27 99 06/13/21 10:54 99 06/13/21 08:00 100 06/13/21 04:00 96 06/12/21 23:30 98 06/12/21 23:05 100 06/12/21 21:32 99 06/12/21 17:47 100 Intake and Output 06/13/21 06/13/21 06/13/21 06:59 14:59 22:59 Intake Total 400 Output Total 426 Balance -26 Intake: IV 400 Output: Urine 425 Estimated Blood Loss 1 Other: Voiding Method Toilet Diaper # Voids 1 Weight 65.7 kg Results CBC & Chem 7: 06/13/21 08:42 06/13/21 08:42 Labs: Abnormal Lab Results - Last 24 Hours (Table) 06/12/21 06/12/21 06/12/21 Range/Units 19:15 19:15 19:15 WBC 28.1 H (3.8-10.6) k/uL Hgb (11.4-16.0) gm/dL MCV 73.1 L (80.0-100.0) fL MCH 23.3 L (25.0-35.0) pg MCHC (31.0-37.0) g/dL RDW 18.1 H (11.5-15.5) % Neutrophils # (1.3-7.7) k/uL Neutrophils # (Manual) 27.20 H (1.3-7.7) k/uL Lymphocytes # (1.0-4.8) k/uL Lymphocytes # (Manual) 0.28 L (1.0-4.8) k/uL INR 1.2 H (<1.2) APTT 31.4 H (22.0-30.0) sec Sodium (137-145) mmol/L Potassium (3.5-5.1) mmol/L Carbon Dioxide (22-30) mmol/L BUN (7-17) mg/dL Creatinine (0.52-1.04) mg/dL Glucose (74-99) mg/dL Plasma Lactic Acid Benigno (0.7-2.0) mmol/L Calcium (8.4-10.2) mg/dL Total Bilirubin (0.2-1.3) mg/dL Alkaline Phosphatase (38-126) U/L Total Protein (6.3-8.2) g/dL Albumin (3.5-5.0) g/dL Amylase (30-110) U/L Lipase (23-300) U/L Urine Appearance Turbid H (Clear) Urine Protein 2+ H (Negative) Urine Blood Moderate H (Negative) Urine Nitrite Positive H (Negative) Ur Leukocyte Esterase Large H (Negative) Urine RBC 30 H (0-5) /hpf Urine WBC >182 H (0-5) /hpf Urine WBC Clumps Many H (None) /hpf Ur Squamous Epith Cells 30 H (0-4) /hpf Urine Bacteria Many H (None) /hpf 06/12/21 06/12/21 06/13/21 Range/Units 19:15 19:15 08:42 WBC 20.7 H (3.8-10.6) k/uL Hgb 10.5 L (11.4-16.0) gm/dL MCV 73.2 L (80.0-100.0) fL MCH 22.5 L (25.0-35.0) pg MCHC 30.7 L (31.0-37.0) g/dL RDW 18.5 H (11.5-15.5) % Neutrophils # 20.0 H (1.3-7.7) k/uL Neutrophils # (Manual) (1.3-7.7) k/uL Lymphocytes # 0.2 L (1.0-4.8) k/uL Lymphocytes # (Manual) (1.0-4.8) k/uL INR (<1.2) APTT (22.0-30.0) sec Sodium 132 L (137-145) mmol/L Potassium 3.1 L (3.5-5.1) mmol/L Carbon Dioxide 15 L (22-30) mmol/L BUN 30 H (7-17) mg/dL Creatinine 2.12 H (0.52-1.04) mg/dL Glucose 113 H (74-99) mg/dL Plasma Lactic Acid Benigno 2.6 H* (0.7-2.0) mmol/L Calcium 8.2 L (8.4-10.2) mg/dL Total Bilirubin (0.2-1.3) mg/dL Alkaline Phosphatase 128 H (38-126) U/L Total Protein (6.3-8.2) g/dL Albumin (3.5-5.0) g/dL Amylase <30 L (30-110) U/L Lipase <10 L (23-300) U/L Urine Appearance (Clear) Urine Protein (Negative) Urine Blood (Negative) Urine Nitrite (Negative) Ur Leukocyte Esterase (Negative) Urine RBC (0-5) /hpf Urine WBC (0-5) /hpf Urine WBC Clumps (None) /hpf Ur Squamous Epith Cells (0-4) /hpf Urine Bacteria (None) /hpf 06/13/21 Range/Units 08:42 WBC (3.8-10.6) k/uL Hgb (11.4-16.0) gm/dL MCV (80.0-100.0) fL MCH (25.0-35.0) pg MCHC (31.0-37.0) g/dL RDW (11.5-15.5) % Neutrophils # (1.3-7.7) k/uL Neutrophils # (Manual) (1.3-7.7) k/uL Lymphocytes # (1.0-4.8) k/uL Lymphocytes # (Manual) (1.0-4.8) k/uL INR (<1.2) APTT (22.0-30.0) sec Sodium 134 L (137-145) mmol/L Potassium 3.2 L (3.5-5.1) mmol/L Carbon Dioxide 13 L (22-30) mmol/L BUN 30 H (7-17) mg/dL Creatinine 1.68 H (0.52-1.04) mg/dL Glucose 109 H (74-99) mg/dL Plasma Lactic Acid Benigno (0.7-2.0) mmol/L Calcium 8.2 L (8.4-10.2) mg/dL Total Bilirubin 0.1 L (0.2-1.3) mg/dL Alkaline Phosphatase 135 H (38-126) U/L Total Protein 6.0 L (6.3-8.2) g/dL Albumin 3.1 L (3.5-5.0) g/dL Amylase (30-110) U/L Lipase (23-300) U/L Urine Appearance (Clear) Urine Protein (Negative) Urine Blood (Negative) Urine Nitrite (Negative) Ur Leukocyte Esterase (Negative) Urine RBC (0-5) /hpf Urine WBC (0-5) /hpf Urine WBC Clumps (None) /hpf Ur Squamous Epith Cells (0-4) /hpf Urine Bacteria (None) /hpf Microbiology - Last 24 Hours (Table) 06/12/21 21:23 Blood Culture Gram Stain - Preliminary Blood 06/12/21 21:23 Blood Culture Gram Stain - Preliminary Blood 06/12/21 21:23 Blood Culture - Final Blood 06/12/21 21:23 Blood Culture - Final Blood 06/12/21 19:15 Urine Culture - Preliminary Urine,Voided
[2021-06-14] MEDS ORDERED: Magnesium Replacement Protocol 1 EACH MISC MISCELLANE PRN (01:16)
[2021-06-14] MEDS ORDERED: Potassium Replacement Protocol 1 EACH MISC MISCELLANE PRN ×3 (01:16→18:52)
[2021-06-14] MEDS: HYDROmorphone 1 MG/ML 1 ML SYRINGE IVP PRN ×5 (01:59→21:28)
[2021-06-14] MEDS: MAGNESIUM SULFATE-D5W PMX 1 GM in DEXTROSE/WATER 1 100ML.BAG IVPB SCH ×2 (02:00→03:08)
[2021-06-14] MEDS: SODIUM CHLORIDE 0.9% 1,000 ML IV SCH ×5 (02:01→22:56)
--- NOTE | 2021-06-14 05:00 | HP ---
HISTORY AND PHYSICAL 41-year-old white female with right flank pain, abdominal pain, nausea, vomiting. Denied fever and chills. CT abdomen and pelvis showed a 3 mm right-sided proximal stone with hydronephrosis. She had a stent placed today. She had acute tubular necrosis, acute renal insufficiency. Pain is 7 out of 10. Treated with broad-spectrum antibiotics for a large amount of white cells in the urine and urosepsis with positive blood cultures. Vancomycin was started. Infectious Disease consult pending. REVIEW OF SYSTEMS: Fourteen-point review of systems negative except for mentioned in HPI. PAST MEDICAL HISTORY: GERD, hypertension, hypothyroidism, truncal vagotomy, abdominal anastomosis, omental mass excision , history of anxiety/depression. MEDICATIONS: Home medications include Xanax 0.5 mg daily, Tenormin 50 mg b.i.d., Adderall 20 mg b.i.d., Synthroid 125 mcg daily, Wellbutrin XR 150 b.i.d. ALLERGIES: REGLAN AND MORPHINE AND PENICILLIN. PHYSICAL EXAMINATION: Temperature 99, pulse rate is 100-120, respiratory 18-20, blood pressure 109 over 70s, pulse ox 100 percent. CARDIOVASCULAR S1, S2. LUNGS clear. GI soft. HEMATOLOGY negative Homans. PSYCH: Fair mood and affect. NEUROLOGIC: Alert and oriented x3. LABORATORY DATA: White count is 28, hemoglobin is 12, platelets 280. UA shows greater than 182 white blood cells, 30 red cells, many bacteria, sodium 132, potassium 3.1, BUN is 30, creatinine is 2.12. ASSESSMENT: 1. Status post right stent placement. 2. Urosepsis. 3. Bacteremia secondary to urosepsis. 4. Ureteral stone, hydronephrosis. PLAN: Continue broad-spectrum antibiotics. Wait for repeat blood cultures. Prognosis guarded. MMODL / IJN: [id number] /
[2021-06-14] MEDS: CEFEPIME 2 GM in SODIUM CHLORIDE 0.9% 100 ML IVPB SCH (06:06)
[2021-06-14] MEDS: POTASSIUM CHLORIDE ER 20 MEQ TAB.ER PO SCH ×7 (06:06→21:14)
[2021-06-14] MEDS: ONDANSETRON 4 MG/2 ML VIAL IVP PRN ×2 (07:40→19:02)
--- NOTE | 2021-06-14 07:50 | P.PN ---
Subjective Progress Note Date: 06/14/21 Patient underwent a cysto with right stent placement for an obstructing stone and pyonephrosis. SHe feels much better. His fever is lesss. We discussed the need for cysto stone and stent removal at a later date. Once she has apprpriate oral ab she can go home and fu with Dr Carvajal to arrange this . Objective - Vital Signs Vital signs: Vital Signs Temp 98.5 F 06/14/21 04:00 Pulse 90 06/14/21 04:00 Resp 18 06/14/21 04:00 BP 110/74 06/14/21 04:00 Pulse Ox 99 06/14/21 04:00 Intake & Output 06/13/21 06/14/21 06/14/21 18:59 06:59 18:59 Intake Total 400 Output Total 826 1200 Balance -426 -1200 Weight 66.8 kg Intake: IV 400 Output: Urine 825 1200 Estimated Blood Loss 1 Other: Voiding Method Toilet - Labs CBC & Chem 7: 06/13/21 08:42 06/13/21 08:42 Labs: Abnormal Lab Results - Last 24 Hours (Table) 06/13/21 06/13/21 Range/Units 08:42 08:42 WBC 20.7 H (3.8-10.6) k/uL Hgb 10.5 L (11.4-16.0) gm/dL MCV 73.2 L (80.0-100.0) fL MCH 22.5 L (25.0-35.0) pg MCHC 30.7 L (31.0-37.0) g/dL RDW 18.5 H (11.5-15.5) % Neutrophils # 20.0 H (1.3-7.7) k/uL Lymphocytes # 0.2 L (1.0-4.8) k/uL Sodium 134 L (137-145) mmol/L Potassium 3.2 L (3.5-5.1) mmol/L Carbon Dioxide 13 L (22-30) mmol/L BUN 30 H (7-17) mg/dL Creatinine 1.68 H (0.52-1.04) mg/dL Glucose 109 H (74-99) mg/dL Calcium 8.2 L (8.4-10.2) mg/dL Total Bilirubin 0.1 L (0.2-1.3) mg/dL Alkaline Phosphatase 135 H (38-126) U/L Total Protein 6.0 L (6.3-8.2) g/dL Albumin 3.1 L (3.5-5.0) g/dL Microbiology - Last 24 Hours (Table) 06/12/21 21:23 Blood Culture Gram Stain - Preliminary Blood Blood Culture - Preliminary 06/12/21 21:23 Blood Culture Gram Stain - Preliminary Blood 06/12/21 21:23 Blood Culture - Final Blood 06/12/21 21:23 Blood Culture - Final Blood
[2021-06-14 10:32] LABS: Albumin 2.6 g/dL (3.5-5.0); Calcium 8.1 mg/dL (8.4-10.2); Potassium 2.8 mmol/L (3.5-5.1); Total Bilirubin 0.6 mg/dL (0.2-1.3); Total Protein 5.2 g/dL (6.3-8.2)
[2021-06-14 10:37] LABS: Anisocytosis Slight; Basophils % (A) 0 %; Eosinophils % (A) 0 %; HCT 28.9 % (34.0-46.0); HGB 9.2 gm/dL (11.4-16.0); Hypochromasia Marked; Lymphocytes # (A) 0.4 k/uL (1.0-4.8); Lymphocytes % (A) 3 %; MCH 22.9 pg (25.0-35.0); MCHC 31.7 g/dL (31.0-37.0); MCV 72.2 fL (80.0-100.0); Mean Platelet Volume 7.5; Microcytosis Marked; Monocytes # (A) 0.4 k/uL (0-1.0); Monocytes % (A) 3 %; Neutrophils # (A) 13.3 k/uL (1.3-7.7); Neutrophils % (A) 93 %; Platelet Count 204 k/uL (150-450); RBC 4.01 m/uL (3.80-5.40); RDW 18.5 % (11.5-15.5); WBC 14.2 k/uL (3.8-10.6)
[2021-06-14] MEDS: atenoloL 50 MG TAB PO SCH ×2 (10:58→21:13)
[2021-06-14] MEDS: ALPRAZolam 0.5 MG TAB PO PRN ×2 (10:58→23:13)
--- NOTE | 2021-06-14 14:14 | PN ---
PROGRESS NOTE DATE OF SERVICE: 06/24/2021 REASON FOR FOLLOWUP: Complicated urinary tract infection with bacteremia. INTERVAL HISTORY: Patient is afebrile. The patient is breathing comfortably. The patient's right flank pain has improved. No chest pain, shortness of breath or cough. No abdominal pain. No diarrhea. PHYSICAL EXAMINATION: Blood pressure is 140/85 with a pulse of 87, temperature 99.9. She is 93% on room air. General description is a middle-aged female lying in bed in no distress. Respiratory system: Unlabored breathing, clear to auscultation anteriorly. Heart S1, S2. Regular rate and rhythm. Abdomen soft, no tenderness. LAB DATA: Hemoglobin is 9.1, white count 14.2, BUN of 20, creatinine 1.41. Blood culture with Gram-negative bacilli. DIAGNOSTIC IMPRESSION AND PLAN: Patient with Gram-negative bacteremia and complicated urinary tract infection. This patient is status post cystoscopy with ureteral stent placement. The patient's antibiotic adjusted to Rocephin as per sensitive pathogen and continue supportive care. MMODL / IJN: [id number] /
--- NOTE | 2021-06-14 14:34 | P.PN ---
Subjective Progress Note Date: 06/14/21 CHIEF COMPLAINT: Abdominal pain HISTORY OF PRESENT ILLNESS: Patient is status post stent placement for right ureteral stone by urology. Patient reports that her pain has decreased. She is not vomiting. She did have one episode of vomiting this morning. She did have a low-grade temp of 100.2 yesterday. She is afebrile this morning. She is currently on a clear liquid diet. WBC has decreased from 20.7-14.2 hemoglobin 9.2 sodium 131 potassium 2.8 creatinine 1.41 potassium is being replaced per pro tocol by medicine service. PHYSICAL EXAM: VITAL SIGNS: Reviewed. GENERAL: Well-developed in no acute distress. HEENT: No sclera icterus. Extraocular movements grossly intact. Moist buccal mucosa. Head is atraumatic, normocephalic. ABDOMEN: Soft. Nondistended. Right flank tenderness NEUROLOGIC: Alert and oriented. Cranial nerves II through XII grossly intact. ASSESSMENT: 1. Chronic cholelithiasis 2. Right ureteral stone with hydronephrosis status post stent by urology PLAN: -No surgical intervention planned at this time -Further workup for cholelithiasis will be completed outpatient -Continue antibiotics per ID for pyelonephritis Physician Foreign Collection Clerk note has been reviewed by physician. Signing provider agrees with the documented findings, assessment, and plan of care. Objective - Vital Signs Vital signs: Vital Signs Temp 99.2 F 06/14/21 14:08 Pulse 86 06/14/21 14:08 Resp 18 06/14/21 14:08 BP 147/84 06/14/21 14:08 Pulse Ox 96 06/14/21 14:08 Intake & Output 06/13/21 06/14/21 06/14/21 18:59 06:59 18:59 Intake Total 400 1810 Output Total 826 1200 400 Balance -426 -1200 1410 Weight 66.8 kg Intake: IV 400 Intake, IV Titration 390 Amount Sodium Chloride 0.9% 1, 390 000 ml @ 130 mls/hr IV . [facility] Rx#:[id number] Oral 1420 Output: Urine 825 1200 400 Estimated Blood Loss 1 Other: Voiding Method Toilet Toilet - Labs CBC & Chem 7: 06/14/21 08:44 06/14/21 08:44 Labs: Abnormal Lab Results - Last 24 Hours (Table) 06/14/21 06/14/21 Range/Units 08:44 08:44 WBC 14.2 H (3.8-10.6) k/uL Hgb 9.2 L (11.4-16.0) gm/dL Hct 28.9 L (34.0-46.0) % MCV 72.2 L (80.0-100.0) fL MCH 22.9 L (25.0-35.0) pg RDW 18.5 H (11.5-15.5) % Neutrophils # 13.3 H (1.3-7.7) k/uL Lymphocytes # 0.4 L (1.0-4.8) k/uL Sodium 131 L (137-145) mmol/L Potassium 2.8 L (3.5-5.1) mmol/L Carbon Dioxide 16 L (22-30) mmol/L BUN 20 H (7-17) mg/dL Creatinine 1.41 H (0.52-1.04) mg/dL Calcium 8.1 L (8.4-10.2) mg/dL Total Protein 5.2 L (6.3-8.2) g/dL Albumin 2.6 L (3.5-5.0) g/dL Microbiology - Last 24 Hours (Table) 06/12/21 21:23 Blood Culture Gram Stain - Preliminary Blood Blood Culture - Preliminary 06/12/21 21:23 Blood Culture Gram Stain - Preliminary Blood 06/12/21 21:23 Blood Culture - Final Blood 06/12/21 21:23 Blood Culture - Final Blood
[2021-06-15 00:24] LABS: Magnesium 1.9 mg/dL (1.6-2.3); Potassium 3.6 mmol/L (3.5-5.1)
[2021-06-15] MEDS: HYDROmorphone 1 MG/ML 1 ML SYRINGE IVP PRN ×3 (03:48→16:27)
[2021-06-15] MEDS: ONDANSETRON 4 MG/2 ML VIAL IVP PRN ×3 (03:49→20:20)
[2021-06-15] MEDS: SODIUM CHLORIDE 0.9% 1,000 ML IV SCH ×2 (03:49→20:08)
[2021-06-15 08:23] LABS: Anisocytosis Slight; Basophils % (A) 0 %; Eosinophils # (A) 0.1 k/uL (0-0.7); Eosinophils % (A) 1 %; HCT 31.7 % (34.0-46.0); HGB 9.5 gm/dL (11.4-16.0); Hypochromasia Marked; Lymphocytes # (A) 0.7 k/uL (1.0-4.8); Lymphocytes % (A) 5 %; MCH 22.4 pg (25.0-35.0); MCV 74.6 fL (80.0-100.0); Mean Platelet Volume 7.7; Microcytosis Moderate; Monocytes # (A) 0.8 k/uL (0-1.0); Monocytes % (A) 6 %; Neutrophils % (A) 86 %; Platelet Count 189 k/uL (150-450); RBC 4.26 m/uL (3.80-5.40); RDW 18.7 % (11.5-15.5)
[2021-06-15 08:38] LABS: Albumin 2.7 g/dL (3.5-5.0); Calcium 8.4 mg/dL (8.4-10.2); Magnesium 1.8 mg/dL (1.6-2.3); Potassium 3.5 mmol/L (3.5-5.1); Total Bilirubin 0.3 mg/dL (0.2-1.3); Total Protein 5.5 g/dL (6.3-8.2)
[2021-06-15] MEDS ORDERED: Potassium Replacement Protocol 1 EACH MISC MISCELLANE PRN (09:06)
[2021-06-15] MEDS ORDERED: Magnesium Replacement Protocol 1 EACH MISC MISCELLANE PRN (09:07)
--- NOTE | 2021-06-15 09:16 | PN ---
PROGRESS NOTE This is a 41-year-old white female with urosepsis, status post ureteral stent placement for ureteral hydronephrosis, ureteral stone stenosis. Her abdominal pain is improved. Temperature 99, pulse 87, blood pressure 140s over 80s, O2 is 93 on room air. Cardiovascular S1, S2. Lungs clear. GI soft. Hematology: Negative Homans. Hemoglobin is 9.1, white count 14.2, BUN 20, creatinine 1.41. Blood cultures with Gram- negative bacilli. Patient with Gram-negative bacteremia with urinary tract infection, status post cystoscopy, ureteral stent placement. Remains on Rocephin. Waiting on cultures. Acute tubular necrosis and acute renal insufficiency are improving with hydration. White count is down to 14.2, hemoglobin is 9.2. She has hypokalemia with potassium of 3.2 after replacement, which was 2.8. BUN and creatinine are 20 and 1.41, down from 30 and 1.68. Patient will continue with broad-spectrum antibiotics, fluid rehydration, potassium supplementation. MMODL / IJN: [id number] /
[2021-06-15] MEDS: atenoloL 50 MG TAB PO SCH ×2 (09:22→20:14)
[2021-06-15] MEDS: POTASSIUM CHLORIDE ER 20 MEQ TAB.ER PO SCH ×2 (09:23→12:08)
[2021-06-15] MEDS: MAGNESIUM SULFATE-D5W PMX 1 GM in DEXTROSE/WATER 1 100ML.BAG IVPB SCH ×2 (12:07→15:08)
[2021-06-15] MEDS: ALPRAZolam 0.5 MG TAB PO PRN (12:08)
--- NOTE | 2021-06-15 14:21 | P.PN ---
Subjective Progress Note Date: 06/15/21 CHIEF COMPLAINT: Abdominal pain HISTORY OF PRESENT ILLNESS: Patient is status post stent placement for right ureteral stone by urology. Patient is feeling better today. She reports decreased pain in the right flank. She is on clear liquid diet. Having low- grade temps of 99.9. WBC is 14 hemoglobin 9.5 platelets 189 sodium 134 potassium 3.5 creatinine 1.23 Patient seen and examined with Dr. ye PHYSICAL EXAM: VITAL SIGNS: Reviewed. GENERAL: Well-developed in no acute distress. HEENT: No sclera icterus. Extraocular movements grossly intact. Moist buccal mucosa. Head is atraumatic, normocephalic. ABDOMEN: Soft. Nondistended. Right flank tenderness NEUROLOGIC: Alert and oriented. Cranial nerves II through XII grossly intact. ASSESSMENT: 1. Chronic cholelithiasis 2. Right ureteral stone with hydronephrosis status post stent by urology PLAN: -No surgical intervention planned at this time -Further workup for cholelithiasis will be completed outpatient -Continue antibiotics per ID for pyelonephritis Physician Solar Fabrication Technician note has been reviewed by physician. Signing provider agrees with the documented findings, assessment, and plan of care. Objective - Vital Signs Vital signs: Vital Signs Temp 99.1 F 06/15/21 12:13 Pulse 69 06/15/21 12:13 Resp 14 06/15/21 12:13 BP 124/74 06/15/21 12:13 Pulse Ox 99 06/15/21 12:13 Intake & Output 06/14/21 06/15/21 06/15/21 18:59 06:59 18:59 Intake Total 1810 120 Output Total 400 1200 1950 Balance 1410 -1200 -1830 Weight 67.7 kg Intake: Intake, IV Titration 390 Amount Sodium Chloride 0.9% 1, 390 000 ml @ 130 mls/hr IV . Q7H42M [facility] [place] Rx#:[id number] Oral 1420 120 Output: Urine 400 1200 1950 Other: Voiding Method Toilet Toilet Toilet # Voids 1 # Bowel Movements 0 - Labs CBC & Chem 7: 06/15/21 07:40 06/15/21 07:40 Labs: Abnormal Lab Results - Last 24 Hours (Table) 06/14/21 06/15/21 06/15/21 Range/Units 17:39 07:40 07:40 WBC 14.0 H (3.8-10.6) k/uL Hgb 9.5 L (11.4-16.0) gm/dL Hct 31.7 L (34.0-46.0) % MCV 74.6 L (80.0-100.0) fL MCH 22.4 L (25.0-35.0) pg MCHC 30.0 L (31.0-37.0) g/dL RDW 18.7 H (11.5-15.5) % Neutrophils # 12.0 H (1.3-7.7) k/uL Lymphocytes # 0.7 L (1.0-4.8) k/uL Sodium 134 L (137-145) mmol/L Potassium 3.2 L (3.5-5.1) mmol/L Carbon Dioxide 17 L (22-30) mmol/L Creatinine 1.23 H (0.52-1.04) mg/dL Total Protein 5.5 L (6.3-8.2) g/dL Albumin 2.7 L (3.5-5.0) g/dL Microbiology - Last 24 Hours (Table) 06/12/21 21:23 Blood Culture Gram Stain - Final Blood Blood Culture - Final Klebsiella pneumoniae 06/12/21 19:15 Urine Culture - Preliminary Urine,Voided Gram Neg Bacilli 06/12/21 21:23 Blood Culture Gram Stain - Preliminary Blood Blood Culture - Preliminary
--- NOTE | 2021-06-15 15:52 | PN ---
PROGRESS NOTE DATE OF SERVICE: 06/15/2021 REASON FOR FOLLOWUP: Klebsiella bacteremia secondary to complicated UTI. INTERVAL HISTORY: The patient is afebrile. The patient is feeling better, breathing comfortably. Denies having any chest pain or shortness of breath or cough. No abdominal pain or diarrhea. PHYSICAL EXAMINATION: Blood pressure 124/74 with a pulse of 69, temperature 99.1. She is 99% on room air. GENERAL DESCRIPTION: General description is a middle-aged female lying in bed in no distress. RESPIRATORY SYSTEM: Unlabored breathing. Clear to auscultation anteriorly. HEART: S1, S2. Regular rate and rhythm. ABDOMEN: Soft. No tenderness. LABS: Hemoglobin is 9.4, white count 14, BUN of 16, creatinine 1.23. Blood culture with Klebsiella pneumoniae. DIAGNOSTIC IMPRESSION AND PLAN: Patient with Klebsiella pneumoniae bacteremia secondary to complicated urinary tract infection in this patient who is status post cystoscopy and ureteral stent placement. Patient is covered with Rocephin; to continue. Will repeat the blood culture to document clearance of bacteremia and continue supportive care. MMODL / IJN: [id number] /
[2021-06-15] MEDS: HYDROmorphone 0.5 MG/0.5 ML SYRINGE IVP PRN (20:21)
--- NOTE | 2021-06-15 23:22 | PN ---
PROGRESS NOTE This is a 41-year-old white female with urosepsis with bacteria, Klebsiella pneumoniae. Urine culture and blood culture. Klebsiella bacteremia secondary to UTI status post ureteral stent placement. Creatinine down to 1.4. Fluid rehydration. Continue Dilaudid for pain. Blood cultures 120s over 70s. Pulse 69, temp 99. Cardiovascular: S1, S2. Lungs clear. GI soft. Hematology: Negative Homans. Psych: Fair mood and affect. Hemoglobin is 9.4, white count 14. BUN 16, creatinine 1.23. Klebsiella pneumoniae bacteremia secondary to complicated urinary tract infection, status post cystoscopy. covered with Rocephin. Repeat blood culture bacteremia. Continue supportive care. Monitor her electrolytes and rehydrate. MMNATACHAL / RONELN: [id number] /
[2021-06-16] MEDS: ALPRAZolam 0.5 MG TAB PO PRN ×2 (00:19→16:51)
[2021-06-16] MEDS: HYDROmorphone 1 MG/ML 1 ML SYRINGE IVP PRN ×4 (00:19→15:05)
[2021-06-16] MEDS: SODIUM CHLORIDE 0.9% 1,000 ML IV SCH ×3 (07:02→19:51)
[2021-06-16 07:23] LABS: Anisocytosis Slight; Basophils % (A) 0 %; Eosinophils # (A) 0.1 k/uL (0-0.7); Eosinophils % (A) 1 %; HCT 29.4 % (34.0-46.0); Hypochromasia Marked; Lymphocytes # (A) 0.7 k/uL (1.0-4.8); Lymphocytes % (A) 9 %; MCH 22.7 pg (25.0-35.0); MCHC 30.5 g/dL (31.0-37.0); MCV 74.4 fL (80.0-100.0); Mean Platelet Volume 7.5; Microcytosis Moderate; Monocytes # (A) 0.6 k/uL (0-1.0); Monocytes % (A) 8 %; Neutrophils # (A) 5.5 k/uL (1.3-7.7); Neutrophils % (A) 78 %; Platelet Count 158 k/uL (150-450); RBC 3.96 m/uL (3.80-5.40); RDW 18.5 % (11.5-15.5)
[2021-06-16 07:41] LABS: Albumin 2.5 g/dL (3.5-5.0); Calcium 8.2 mg/dL (8.4-10.2); Magnesium 1.7 mg/dL (1.6-2.3); Potassium 3.2 mmol/L (3.5-5.1); Total Bilirubin 0.3 mg/dL (0.2-1.3); Total Protein 5.1 g/dL (6.3-8.2)
[2021-06-16] MEDS ORDERED: Potassium Replacement Protocol 1 EACH MISC MISCELLANE PRN (08:01)
[2021-06-16] MEDS: POTASSIUM CHLORIDE ER 20 MEQ TAB.ER PO SCH ×2 (08:16→10:41)
[2021-06-16] MEDS: MAGNESIUM SULFATE-D5W PMX 1 GM in DEXTROSE/WATER 1 100ML.BAG IVPB SCH ×2 (08:16→10:41)
[2021-06-16] MEDS: ONDANSETRON 4 MG/2 ML VIAL IVP PRN (08:16)
[2021-06-16] MEDS: atenoloL 50 MG TAB PO SCH ×2 (08:16→19:51)
[2021-06-16 08:22] LABS: C Reactive Protein 16.4 mg/dL (<1.0)
[2021-06-16] MEDS: HYDROmorphone 0.5 MG/0.5 ML SYRINGE IVP PRN ×2 (19:50→23:47)
[2021-06-17] MEDS: traMADol 50 MG TAB PO PRN (03:15)
[2021-06-17] MEDS: SODIUM CHLORIDE 0.9% 1,000 ML IV SCH ×3 (03:19→18:49)
[2021-06-17] MEDS: HYDROmorphone 0.5 MG/0.5 ML SYRINGE IVP PRN ×4 (06:59→21:50)
--- NOTE | 2021-06-17 07:14 | PN ---
PROGRESS NOTE DATE OF SERVICE: 06/16/2021. REASON FOR FOLLOWUP: Complicated urinary tract infection with bacteremia. INTERVAL HISTORY: Patient is afebrile. The patient is breathing comfortably. The patient denies having any chest pain. No shortness of breath or cough. Abdominal pain is controlled. No nausea, vomiting or diarrhea. PHYSICAL EXAMINATION: Blood pressure 162/90, pulse of 78, temperature of 98.5. She is 100% on room air. General description is a middle-aged female lying in bed in no distress. Respiratory system: Unlabored breathing, clear to auscultation anteriorly. Heart S1, S2. Regular rate and rhythm. Abdomen soft, no tenderness. LABS: Hemoglobin 9, white count 7.0, BUN of 12, creatinine 1.0. DIAGNOSTIC IMPRESSION AND PLAN: Patient with Klebsiella pneumoniae, urinary tract infection complicated status post cystoscopy and ureteral stent placement. Patient is covered with Rocephin. Finish therapy with oral Ceftin and close outpatient followup. MMODL / IJN: [id number] /
--- NOTE | 2021-06-17 07:15 | PN ---
PROGRESS NOTE 41-year-old white female remains on broad-spectrum ceftriaxone due to Klebsiella pneumonia, sepsis secondary to UTI with ureteral stenosis. Talked about weaning down on her pain medicines. Her white count is now down from 14 down to 7, hemoglobin is 9.5 down to 9. Sodium is 136 and potassium is 3.2, CRP 16.4. Blood pressure is a bit high, up to the 160s over 90s tonight. Possibly increase her blood pressure medications. Wean down the IV pain medication. Possible discharge home soon. MMODL / IJN: [id number] /
[2021-06-17] MEDS: atenoloL 50 MG TAB PO SCH ×2 (08:40→20:16)
[2021-06-17] MEDS: ALPRAZolam 0.5 MG TAB PO PRN ×2 (08:43→20:16)
[2021-06-17 10:15] LABS: Anisocytosis Slight; Basophils % (A) 0 %; Eosinophils # (A) 0.1 k/uL (0-0.7); Eosinophils % (A) 2 %; HCT 26.9 % (34.0-46.0); HGB 8.4 gm/dL (11.4-16.0); Hypochromasia Marked; Lymphocytes # (A) 0.8 k/uL (1.0-4.8); Lymphocytes % (A) 13 %; MCHC 31.3 g/dL (31.0-37.0); MCV 73.6 fL (80.0-100.0); Microcytosis Moderate; Monocytes # (A) 0.4 k/uL (0-1.0); Monocytes % (A) 6 %; Neutrophils # (A) 4.4 k/uL (1.3-7.7); Neutrophils % (A) 75 %; Platelet Count 193 k/uL (150-450); RBC 3.66 m/uL (3.80-5.40); RDW 18.4 % (11.5-15.5); WBC 5.9 k/uL (3.8-10.6)
[2021-06-17 10:29] LABS: ALT 22 U/L (4-34); AST 30 U/L (14-36); African American GFR (CKD) >90 (>60 ml/min/1.73 sqM); Albumin 2.5 g/dL (3.5-5.0); Alkaline Phosphatase 105 U/L (38-126); Anion Gap 8 mmol/L; Blood Urea Nitrogen 9 mg/dL (7-17); Carbon Dioxide 22 mmol/L (22-30); Chloride 107 mmol/L (98-107); Glucose 98 mg/dL (74-99); Magnesium 1.6 mg/dL (1.6-2.3); Non-African American GFR(CKD) >90 (>60 ml/min/1.73 sqM); Sodium 137 mmol/L (137-145); Total Bilirubin 0.2 mg/dL (0.2-1.3); Total Protein 5.1 g/dL (6.3-8.2)
[2021-06-17] MEDS ORDERED: Potassium Replacement Protocol 1 EACH MISC MISCELLANE PRN (10:56)
[2021-06-17] MEDS: MAGNESIUM SULFATE-D5W PMX 1 GM in DEXTROSE/WATER 1 100ML.BAG IVPB SCH ×2 (11:11→12:18)
[2021-06-17] MEDS: POTASSIUM CHLORIDE ER 20 MEQ TAB.ER PO SCH ×3 (13:44→18:53)
--- NOTE | 2021-06-17 16:52 | PN ---
PROGRESS NOTE DATE OF SERVICE: 06/17/2021 REASON FOR FOLLOWUP: Complicated urinary tract infection with Klebsiella. INTERVAL HISTORY: The patient is afebrile. The patient is breathing comfortably. The patient's flank pain has improved. No nausea, no vomiting. No chest pain, shortness of breath or cough and no diarrhea. PHYSICAL EXAMINATION: Blood pressure 137/69 with a pulse of 73, temperature 97.9. She is 98% on room air. GENERAL DESCRIPTION: General description is a middle-aged female lying in bed in no distress. RESPIRATORY SYSTEM: Unlabored breathing. Clear to auscultation anteriorly. HEART: S1, S2. Regular rate and rhythm. ABDOMEN: Soft. No tenderness. LABS: Hemoglobin 8.9, white count 5.9. BUN of 9, creatinine 0.80. DIAGNOSTIC IMPRESSION AND PLAN: Patient with Klebsiella pneumoniae urinary tract infection and bacteremia. Overall clinical improvement on Rocephin. Transition to oral Cipro for another 10 days on discharge and close outpatient followup. MMODL / IJN: [id number] /
--- NOTE | 2021-06-17 19:19 | PN ---
PROGRESS NOTE This is a 41-year-old white female. Hemoglobin dropped from 9 to 8.4. She says she has no signs of bleeding. Potassium is low at 3.0. Sodium 137. Albumin is low at 2.5. Check Klebsiella pneumoniae. Second set of blood cultures is negative. Urine culture has been treated with antibiotics. Her pain is better. Cardiovascular S1, S2. Lungs clear. GI soft. Hypokalemia, Klebsiella pneumoniae, Klebsiella UTI and sepsis. Clinical improvement on Rocephin. Switch to oral Cipro for another 10 days on discharge. We will replace potassium. Ambulate. Possible discharge home in the next 24-48 hours. MMODL / IJN: [id number] /
[2021-06-18] MEDS: SODIUM CHLORIDE 0.9% 1,000 ML IV SCH ×4 (03:20→22:42)
[2021-06-18] MEDS: HYDROmorphone 0.5 MG/0.5 ML SYRINGE IVP PRN ×4 (03:23→16:51)
[2021-06-18] MEDS: atenoloL 50 MG TAB PO SCH ×2 (08:33→20:44)
[2021-06-18] MEDS: POTASSIUM CHLORIDE ER 20 MEQ TAB.ER PO SCH ×3 (08:33→10:51)
[2021-06-18] MEDS: ALPRAZolam 0.5 MG TAB PO PRN ×2 (08:37→20:44)
[2021-06-18 08:41] LABS: Anisocytosis Slight; Basophils % (A) 0 %; Eosinophils # (A) 0.2 k/uL (0-0.7); Eosinophils % (A) 2 %; HCT 28.6 % (34.0-46.0); HGB 8.8 gm/dL (11.4-16.0); Hypochromasia Marked; Lymphocytes % (A) 13 %; MCHC 30.9 g/dL (31.0-37.0); MCV 74.5 fL (80.0-100.0); Mean Platelet Volume 7.3; Microcytosis Moderate; Monocytes # (A) 0.4 k/uL (0-1.0); Monocytes % (A) 5 %; Neutrophils % (A) 76 %; Platelet Count 265 k/uL (150-450); RBC 3.84 m/uL (3.80-5.40); RDW 18.2 % (11.5-15.5); WBC 7.8 k/uL (3.8-10.6)
[2021-06-18 09:03] LABS: African American GFR (CKD) >90 (>60 ml/min/1.73 sqM); Anion Gap 9 mmol/L; Blood Urea Nitrogen 6 mg/dL (7-17); Calcium 8.1 mg/dL (8.4-10.2); Carbon Dioxide 22 mmol/L (22-30); Chloride 107 mmol/L (98-107); Glucose 92 mg/dL (74-99); Magnesium 1.7 mg/dL (1.6-2.3); Non-African American GFR(CKD) >90 (>60 ml/min/1.73 sqM); Potassium 3.2 mmol/L (3.5-5.1); Sodium 138 mmol/L (137-145)
[2021-06-18] MEDS: MAGNESIUM SULFATE-D5W PMX 1 GM in DEXTROSE/WATER 1 100ML.BAG IVPB SCH ×2 (09:19→10:50)
[2021-06-18] MEDS: traMADol 50 MG TAB PO PRN ×2 (14:26→20:44)
--- NOTE | 2021-06-18 17:03 | PN ---
PROGRESS NOTE DATE OF SERVICE: 06/18/2021 REASON FOR FOLLOWUP: E coli UTI and complicated UTI INTERVAL HISTORY: The patient is afebrile. The patient says she is not feeling as good today. The patient denies having any chest pain or shortness of breath or cough. No vomiting. No abdominal pain or diarrhea. PHYSICAL EXAMINATION: Blood pressure 151/67, pulse of 65, temperature 98.2. She is 93% on 2 L nasal cannula. GENERAL DESCRIPTION: General description is a middle-aged female up in the bed in no distress. RESPIRATORY SYSTEM: Unlabored breathing. Clear to auscultation anteriorly. HEART: S1, S2. Regular rate and rhythm. ABDOMEN: Soft. No tenderness. LABS: Hemoglobin is 8.9, white count BUN of 6, creatinine 0.66. Blood culture repeat has been negative. DIAGNOSTIC IMPRESSION AND PLAN: Patient with Klebsiella pneumoniae bacteremia secondary to complicated urinary tract infection, status post cystoscopy and ureteral stent placement. She is on Rocephin; to finish therapy with oral Cipro and close outpatient followup. MMODL / IJN: [id number] /
--- NOTE | 2021-06-18 19:35 | PN ---
PROGRESS NOTE Microbiology: repeat blood culture negative for 48 hours. She is treated for Klebsiella pneumoniae sepsis and bacteremia positive. Potassium is low at 3.2 today despite adding potassium to her diet. Hemoglobin is stable at 8.8. Sodium was normal. BUN and creatinine are improved, down to 6 and 0.66. Cardiovascular S1, S2. Lungs are clear. GI soft. Hematology: Negative Homans. ASSESSMENT: 1. Obstructing hydronephrosis. 2. Pyelonephritis. 3. Acute tubular necrosis. 4. Klebsiella bacteremia pneumoniae. Stent placement. She is on Rocephin. Possibly switch to Cipro. Possibly discharge home tonight or tomorrow, pending one more day of blood cultures. MMODL / IJN: [id number] /
[2021-06-19] MEDS: traMADol 50 MG TAB PO PRN ×2 (02:49→08:46)
[2021-06-19 03:19] VITALS: PULSE 72
[2021-06-19 07:53] LABS: Anisocytosis Slight; Basophils % (A) 0 %; Eosinophils # (A) 0.1 k/uL (0-0.7); Eosinophils % (A) 2 %; HCT 29.4 % (34.0-46.0); HGB 9.1 gm/dL (11.4-16.0); Hypochromasia Marked; Lymphocytes # (A) 1.1 k/uL (1.0-4.8); Lymphocytes % (A) 12 %; MCH 23.1 pg (25.0-35.0); MCV 74.4 fL (80.0-100.0); Mean Platelet Volume 7.8; Microcytosis Moderate; Monocytes # (A) 0.4 k/uL (0-1.0); Monocytes % (A) 4 %; Neutrophils # (A) 7.1 k/uL (1.3-7.7); Neutrophils % (A) 80 %; Platelet Count 370 k/uL (150-450); RBC 3.95 m/uL (3.80-5.40); RDW 18.5 % (11.5-15.5); WBC 8.8 k/uL (3.8-10.6)
[2021-06-19 08:13] LABS: ALT 19 U/L (4-34); AST 24 U/L (14-36); African American GFR (CKD) >90 (>60 ml/min/1.73 sqM); Alkaline Phosphatase 112 U/L (38-126); Anion Gap 8 mmol/L; Blood Urea Nitrogen 5 mg/dL (7-17); Calcium 8.3 mg/dL (8.4-10.2); Carbon Dioxide 25 mmol/L (22-30); Chloride 106 mmol/L (98-107); Glucose 95 mg/dL (74-99); Non-African American GFR(CKD) >90 (>60 ml/min/1.73 sqM); Potassium 3.5 mmol/L (3.5-5.1); Sodium 139 mmol/L (137-145); Total Bilirubin 0.3 mg/dL (0.2-1.3); Total Protein 5.9 g/dL (6.3-8.2)
[2021-06-19] MEDS: atenoloL 50 MG TAB PO SCH (08:45)
[2021-06-19] MEDS: ALPRAZolam 0.5 MG TAB PO PRN (08:46)
[2021-06-19] MEDS: POTASSIUM CHLORIDE ER 20 MEQ TAB.ER PO SCH (08:46)
[2021-06-19 10:59] VITALS: BP 183/90; RESP 18; TEMP 98.1
--- NOTE | 2021-06-19 12:39 | DS ---
DISCHARGE SUMMARY DISCHARGE MEDICATIONS: Discharged home on Cipro 500 b.i.d., potassium chloride 20 mEq daily Neurontin 100 b.i.d., tramadol 50 q.i.d. p.r.n., Wellbutrin XR 150 b.i.d., levothyroxine 125 mcg daily, Xanax 0.5 mg daily, Adderall 20 mg b.i.d. CONDITION: Stable. PROGNOSIS: Guarded. Ambulate as tolerated. DISCHARGE DIAGNOSES: 1. Hydronephrosis, right with renal and ureteral calculus with right-sided pyelonephritis. 2. Sepsis with Klebsiella pneumoniae bacteremia. 3. Hypertension acceleration. 4. The patient was admitted with ureteral stenosis, severe pyelonephritis. A stent was placed for ureteral stone. Started on broad-spectrum antibiotics for severe pyelonephritis with positive blood cultures and Klebsiella pneumonia bacteremia. Patient stabilized over the next few days. Hypokalemia was corrected with potassium supplementations. Pain control. Fluid rehydration. Diet was advanced. The patient was then discharged home once the repeat blood cultures are negative for 72 hours. MMODL / IJN: [id number] /
--- NOTE | 2021-06-19 13:56 | PN ---
PROGRESS NOTE DATE OF SERVICE: 06/19/2021 REASON FOR FOLLOWUP: Klebsiella UTI and bacteremia. INTERVAL HISTORY: The patient is afebrile. The patient is feeling better, breathing comfortably. No chest pain or cough. No abdominal pain or diarrhea. PHYSICAL EXAMINATION: Blood pressure 183/90 with a pulse of 92, temperature 98.1. She is 100% on room air. GENERAL DESCRIPTION: General description is a middle-aged female lying in bed in no distress. RESPIRATORY SYSTEM: Unlabored breathing. Clear to auscultation anteriorly. HEART: S1, S2. Regular rate and rhythm. ABDOMEN: Soft. No tenderness. LABS: Hemoglobin is 9.9, white count 8.8, BUN of 5, creatinine 0.62. DIAGNOSTIC IMPRESSION AND PLAN: Patient with Klebsiella urinary tract infection and bacteremia; seems to have shown overall clinical improvement. To finish therapy with oral Cipro and close outpatient followup. MMODL / IJN: [id number] /
[2021-06-19 14:38] VITALS: BMI 23.6
[2021-06-19] MEDS ORDERED: CIPROFLOXACIN HCL 500 MG TAB PO SCH (21:00)
== END 2021-06-19 14:34 | disposition home or self-care (01) | DRG 853 ==
LOC: EC 17:42 → 3SCARD 21:54
PROVIDERS: ADMIT Family Medicine; ATTEND Family Medicine
PROC: 0T768DZ Dilation of Right Ureter with Intraluminal Device, Via Natural or Artificial Opening Endoscopic (ICD-10-PCS; principal; 2021-06-12)
PROC: 0T9B80Z Drainage of Bladder with Drainage Device, Via Natural or Artificial Opening Endoscopic (ICD-10-PCS; 2021-06-12)
DX: A41.51 Sepsis due to Escherichia coli [E. coli] (principal); N17.0 Acute kidney failure with tubular necrosis; N13.6 Pyonephrosis; E87.2 Acidosis; A41.59 Other Gram-negative sepsis; K80.20 Calculus of gallbladder without cholecystitis without obstruction; I10 Essential (primary) hypertension; D50.9 Iron deficiency anemia, unspecified; E03.9 Hypothyroidism, unspecified; E87.6 Hypokalemia; K21.9 Gastro-esophageal reflux disease without esophagitis; F32.9 Major depressive disorder, single episode, unspecified; F41.9 Anxiety disorder, unspecified; Z79.899 Other long term (current) drug therapy; Z79.890 Hormone replacement therapy; Z88.0 Allergy status to penicillin; Z87.11 Personal history of peptic ulcer disease; Z87.442 Personal history of urinary calculi; Z90.411 Acquired partial absence of pancreas; Z88.5 Allergy status to narcotic agent; Z88.8 Allergy status to other drugs, medicaments and biological substances
CPT/HCPCS: 36415; 74177; 80048; 80053; 81001; 81025; 82150; 83605; 83690; 83735; 84132; 85025; 85610; 85730; 86140; 87040; 87077; 87086; 87186; 96361; 96365; 96375; 99291

== ENCOUNTER 2021-06-25 06:25 | Day surgery (SDC) | payer SELFPAY ==
[2021-06-21 10:11] VITALS: BMI 22.5
--- NOTE | 2021-06-24 18:00 | P.HPIHPCON ---
History of Present Illness H&P Date: 06/24/21 This is a 41 yo female with hx of 3 mm right sided proximal stone and multiple non-obstructive stones. She was septic secondary to her stone and underwent stent placement on 06/13. She is currently on antibiotics. She presents today to address her stone. discussed with her risk of bleeding, infection and ureteral injury. She understood all risks and agreed to proceed with right sided ureteroscopy with holmium laser, stone basketting and stent removal Consent for Procedure: I have explained the operation/procedure to the patient, including the risks, benefits, side effects, alternative therapies (including not receiving the proposed treatment or service), the likelihood of the patient achieving his/her goals, and potential recuperation problems for the procedure/sedation/analgesia, as well as any blood products, if indicated. I also explained to the patient the risks, benefits and side effects of the alternatives, as well as the risks related to not receiving the proposed procedure, care, treatment, or services. - Constitutional Constitutional: Denies chills, Denies fever - EENT Ears, nose, mouth and throat: Denies headache, Denies sore throat - Cardiovascular Cardiovascular: Denies chest pain, Denies shortness of breath - Respiratory Respiratory: Denies cough, Denies 7 - Genitourinary (Female) Genitourinary: Denies dysuria, Denies hematuria Past Medical History Past Medical History: GERD/Reflux, Hypertension, Thyroid Disorder Additional Past Medical History / Comment(s): kidney stones. septic during last hospital stay 06/12/21-06/19/21. Hx PUD History of Any Multi-Drug Resistant Organisms: None Reported Past Surgical History: Section Additional Past Surgical History / Comment(s): Abd. Anastomosis, Truncal Vagatomy, Omental mass excision.partial gastrectomy, whipple procedure. kidney stent Past Anesthesia/Blood Transfusion Reactions: No Reported Reaction, Motion Sickness Smoking Status: Never smoker - Past Family History Mother Family Medical History: No Reported History Medications and Allergies Home Medications Medication Instructions Recorded Confirmed Type ALPRAZolam [Xanax] 0.5 mg PO DAILY 06/12/21 06/21/21 History Dextroamphetamine/Amphetamine 20 mg PO BID 06/12/21 06/21/21 History [Adderall] Levothyroxine Sodium [Synthroid] 125 mcg PO DAILY 06/12/21 06/21/21 History buPROPion SR [Wellbutrin SR] 150 mg PO BID 06/12/21 06/21/21 History Ciprofloxacin HCl [Cipro] 500 mg PO BID 10 Days #20 tab 06/19/21 06/21/21 Rx Potassium Chloride ER [K-Dur 20] 20 meq PO DAILY 30 Days #30 tablet 06/19/21 06/21/21 Rx atenoloL [Tenormin] 100 mg PO BID 30 Days #60 tab 06/19/21 06/21/21 Rx traMADol HCl [Ultram] 50 mg PO QID PRN tab 06/19/21 06/21/21 Rx Allergies Allergy/AdvReac Type Severity Reaction Status Date / Time metoclopramide [From Reglan] Allergy Rash/Hives Verified 06/21/21 09:56 morphine Allergy Rash/Hives Verified 06/21/21 09:56 Penicillins Allergy Anaphylaxis Verified 06/21/21 09:56 Surgical - Exam - General well developed, well nourished, no distress - Respiratory normal expansion, normal respiratory effort
[~2021-06-25 06:25] MED LIST: CIPROFLOXACIN/DEXTROSE PMX 400 MG in DEXTROSE/WATER 1 200ML.BAG IVPB PRN
[2021-06-25] MEDS ORDERED: MIDAZOLAM 2 MG/2 ML VIAL IV PRN (06:53)
[2021-06-25] MEDS ORDERED: ONDANSETRON 4 MG/2 ML VIAL IVP ONE ×2 (06:53→09:27)
[2021-06-25] MEDS ORDERED: SCOPOLAMINE 1.5MG/72HR PATCH TRANSDERM ONE (06:53)
[2021-06-25] MEDS ORDERED: DEXAMETHASONE SOD PHOSPHATE 4 MG/ML 1 ML VIAL IV ONE (06:53)
[2021-06-25] MEDS ORDERED: HYDROmorphone 0.5 MG/0.5 ML SYRINGE IVP PRN (07:00)
[2021-06-25] MEDS: LACTATED RINGERS 1,000 ML IV SCH ×2 (07:19→07:58)
[2021-06-25] MEDS ORDERED: KETOROLAC 15 MG/ML 1 ML VIAL ONE (07:58)
[2021-06-25] MEDS ORDERED: fentaNYL (PF) 50 MCG/ML 2 ML AMP ONE (07:58)
[2021-06-25] MEDS ORDERED: SUCCINYLCHOLINE CHLORIDE 100 MG/5 ML SYR IV ONE (07:58)
[2021-06-25] MEDS ORDERED: MIDAZOLAM 2 MG/2 ML VIAL ONE (07:58)
[2021-06-25] MEDS ORDERED: LIDOCAINE 1% INJ 10MG/ML (20 ML MDV) ONE (07:58)
[2021-06-25] MEDS ORDERED: PROPOFOL 10 MG/ML 20 ML VIAL IV ONE (07:58)
[2021-06-25] MEDS ORDERED: SODIUM CHLORIDE 0.9% 100 ML with GENTAMICIN 80 MG IV ONE ×2 (08:17)
--- NOTE | 2021-06-25 08:23 | XR ---
KUB HISTORY: Right ureteral calculus Frontal KUB submitted on 2 images, comparison to CT 06/12/2021 Right-sided double-J ureteral stent is in place. Phlebolith noted in left hemipelvis. Multiple calcif ications are present within the right kidney, at least 3-4 calcifications, the largest measures appro ximately 1 cm, the previously identified right ureteral calcification may be within the right renal c ollecting system as compared to prior exam. Postop changes are noted in the left upper quadrant. No e vident bowel obstruction or pneumoperitoneum. IMPRESSION: Right-sided nephrolithiasis, double-J stent
[2021-06-25 09:12] VITALS: TEMP 97
[2021-06-25 09:24] VITALS: RESP 16
[2021-06-25] MEDS ORDERED: ONDANSETRON 4 MG/2 ML VIAL ONE (09:24)
[2021-06-25 10:03] VITALS: BP 149/92; PULSE 61
--- NOTE | 2021-06-25 10:17 | P.OP ---
Date of Procedure: 06/25/21 Preoperative Diagnosis: Right ureteral, renal stones Postoperative Diagnosis: Right renal stones Procedure(s) Performed: Cystoscopy, right ureteroscopy, holmium lithotripsy, stone basketing and stent removal Implants: None Anesthesia: LEONORA Surgeon: Markie Carvajal Estimated Blood Loss (ml): 1 Pathology: other (Right renal stones) Condition: stable Disposition: PACU Indications for Procedure: This is a 41 yo female with hx of 3 mm right sided proximal stone and multiple non-obstructive stones. She was septic secondary to her stone and underwent stent placement on 06/13. She is currently on antibiotics. She presents today to address her stone. discussed with her risk of bleeding, infection and ureteral injury. She understood all risks and agreed to proceed with right sided ureteroscopy with holmium laser, stone basketting and stent removal Operative Findings: Multiple stones within the lower pole of the kidney, no ureteral stone was visualized Description of Procedure: Patient was brought to the operating room, general anesthesia was induced. She was prepped and draped in sterile fashion a placement dorsal lithotomy position. A cystoscopy fitted with a 21-[place]oz[place] sheath was inserted per urethra, cystoscopy was performed showed no abnormality within the bladder. Attention was then carried to the right ureteral orifice, and a semirigid ureteroscope was advanced through the ureteral orifice without difficulties. The scope was advanced all the way up to the proximal ureter, no stone was visualized along the course a ureter, pullback ureteroscopy was performed which showed no injury to the ureter or any ureteral stone. Next ureteroscope was withdrawn and a sensor wire was advanced through. Next an 1113 [place] access sheath was passed under fluoroscopy over the wire into the proximal ureter. Next a flexible ureteroscope was advanced through the access sheath, renoscopy was performed which showed multiple stones within the lower pole. Using the holmium laser the stone was fragmented into small fragments, sizable fragments were removed using the stone basket, repeat renoscopy showed no sizable fragments or injury to the kidney. Of note there was a radiopaque calcification that was visualized on fluoroscopy, and on ureteroscopy was not visualized within the collecting system, and appeared to be a parenchymal calcification. Repeat renoscopy showed no sizable fragments or injury to the kidney. Pullback ureteroscopy was performed showed no injury to the ureter or any ureteral fragments. The bladder was emptied at the end of the case. Patient tolerated the procedure well was taken to PACU in stable condition
--- NOTE | 2021-06-25 10:43 | FL ---
Fluoroscopy HISTORY: Right ureteral calculus 1 seconds fluoroscopy time supplied to the referring clinician. 1 intraoperative C-arm images docume nt the procedure. See dictated report from urology.
== END 2021-06-25 10:35 | disposition home or self-care (01) ==
LOC: OR 06:25
PROVIDERS: ATTEND Urology
DX: N20.2 Calculus of kidney with calculus of ureter (principal); I10 Essential (primary) hypertension; E07.9 Disorder of thyroid, unspecified; F90.9 Attention-deficit hyperactivity disorder, unspecified type; F32.9 Major depressive disorder, single episode, unspecified; K21.9 Gastro-esophageal reflux disease without esophagitis; N28.9 Disorder of kidney and ureter, unspecified
CPT/HCPCS: 52320; 52353; 81025; 84132; 82365; 74018; C1769 ×3; J2250; J1580; J1100; J2405; J2001; J3010; J1885; J0330; J2704

== ENCOUNTER 2021-07-03 16:45 | Inpatient (IN) | payer OTHER ==
--- NOTE | 2021-07-03 18:06 | XR ---
EXAMINATION TYPE: XR KUB DATE OF EXAM: 07/03/2021 COMPARISON: 06/25/2021 HISTORY: Abdominal pain TECHNIQUE: 2 views Upright FINDINGS: Bowel gas pattern is normal. There is no sign of intestinal obstruction or pneumoperitoneum . Fecal pattern is normal. There are calcifications over the kidneys that measure up to 6 mm. There i s a slight thoracolumbar dextroscoliosis. Lung bases are clear. IMPRESSION: Nonacute abdomen. No adverse change. There is removal of right ureteral stent compared to old exam.
[2021-07-03 19:43] LABS: Anisocytosis Slight; Basophils # (A) 0.1 k/uL (0-0.2); Basophils % (A) 1 %; Eosinophils # (A) 0.1 k/uL (0-0.7); Eosinophils % (A) 1 %; HCT 32.7 % (34.0-46.0); HGB 9.8 gm/dL (11.4-16.0); Hypochromasia Moderate; Lymphocytes # (A) 1.5 k/uL (1.0-4.8); Lymphocytes % (A) 22 %; MCH 22.8 pg (25.0-35.0); MCV 76.2 fL (80.0-100.0); Mean Platelet Volume 6.9; Microcytosis Slight; Monocytes # (A) 0.4 k/uL (0-1.0); Monocytes % (A) 6 %; Neutrophils # (A) 4.5 k/uL (1.3-7.7); Neutrophils % (A) 68 %; Platelet Count 338 k/uL (150-450); RBC 4.29 m/uL (3.80-5.40); RDW 18.2 % (11.5-15.5); WBC 6.6 k/uL (3.8-10.6)
[2021-07-03 19:53] LABS: ALT 13 U/L (4-34); AST 29 U/L (14-36); African American GFR (CKD) >90 (>60 ml/min/1.73 sqM); Albumin 3.8 g/dL (3.5-5.0); Alkaline Phosphatase 92 U/L (38-126); Anion Gap 11 mmol/L; Blood Urea Nitrogen 9 mg/dL (7-17); Calcium 9.1 mg/dL (8.4-10.2); Carbon Dioxide 22 mmol/L (22-30); Chloride 106 mmol/L (98-107); Glucose 105 mg/dL (74-99); Lipase 132 U/L (23-300); Non-African American GFR(CKD) 82 (>60 ml/min/1.73 sqM); Potassium 3.1 mmol/L (3.5-5.1); Sodium 139 mmol/L (137-145); Total Bilirubin 0.4 mg/dL (0.2-1.3)
[2021-07-03 19:57] LABS: Appearance,Urine Cloudy (Clear); Bacteria,Urine Rare /hpf; Bilirubin,Urine Negative (Negative); Blood,Urine Negative (Negative); Color,Urine Yellow; Glucose,Urine (UA) Negative (Negative); Ketones,Urine Negative (Negative); Leukocyte Esterase,Urine Small (Negative); Mucus,Urine Few /hpf; Nitrite,Urine Negative (Negative); PH, Urine 6.5 (5.0-8.0); Protein,Urine 3+ (Negative); RBC,Urine 5 /hpf (0-5); Specific Gravity,Urine 1.019 (1.001-1.035); Squamous Epithelial Cell,Urine 3 /hpf (0-4); Urobilinogen,Urine <2.0 mg/dL (<2.0); WBC,Urine 58 /hpf (0-5)
[2021-07-03] MEDS: SODIUM CHLORIDE 0.9% 1,000 ML IV SCH (19:58)
--- NOTE | 2021-07-03 20:45 | CT ---
EXAMINATION TYPE: CT abdomen pelvis w con DATE OF EXAM: 07/03/2021 COMPARISON: 06/12/2021 HISTORY: abdominal pain and distention CT DLP: 574.6 mGycm Automated exposure control for dose reduction was used. CONTRAST: Performed with IV Contrast, patient injected with 100 mL of Isovue 300. Images obtained from the diaphragm to the floor the pelvis with IV contrast. Lung bases are clear. There is no pleural effusion. Heart size is normal. There is no pericardial eff usion. Liver is intact. Spleen is intact. There is no pancreatic mass. The stomach is intact. Gallbla dder appears normal. The bile ducts are not dilated. There is no adrenal mass. Kidneys are enlarged. There are multiple bilateral renal calculi that measu re up to 7 mm. There is some left side perinephric fluid. There is no retroperitoneal adenopathy. Del ayed images show patchy decreased cortical enhancement of the right kidney. There is also smaller are as of decreased enhancement in the left kidney. Urinary bladder is almost empty. Uterus is anteverted . There is no free fluid in the pelvis. There is no inguinal hernia. There is 2.7 cm cyst on the righ t ovary. Appendix is not seen. There is no sign of thickened appendix. The cecum is low in the pelvis . There is no mesenteric edema. There is no ascites or free air. Lumbar vertebra appear intact. There i s no compression fracture. Bony pelvis is intact. IMPRESSION: Multiple bilateral renal calculi. There is clearing of the right side obstruction and calculus at the ureteropelvic junction compared to old exam. Kidneys are somewhat enlarged and there is left side perinephric fluid. There is patchy heterogeneity of the cortical enhancement of both kidneys and more noticeable on the right side. This could relate to multifocal pyelonephritis or other nephritis. Heterogeneity in the kidneys appears worse on the l eft side and slightly improved on the right side compared to old exam.
--- NOTE | 2021-07-03 20:51 | ED ---
Abdominal Pain HPI - General Chief Complaint: Abdominal Pain Stated Complaint: abd pain/nausea Source: patient Mode of arrival: ambulatory Limitations: no limitations - History of Present Illness Initial Comments: 41-year-old female past nuchal history of bowel obstruction, duodenal ulcer with Whipple, recent ureterolithiasis with hydronephrosis [facility] emergency room with reported abdominal pain and distention. States that for the past 2 days she has not ate or drank anything. Reports that anything she eats or drinks she wants to throw up and gets an intense abdominal pain. She was recently hospitalized for septic stone. States she finished her antibiotics this weekend. She has had no issues with her urination to include dysuria, hematuria or or difficulty voiding. Has has diarrhea which cleared up on Friday. No fevers or chills. Denies concern for . No chest pain or shortness of breath. Patient is not taking anything for pain at home. No history of C. diff. No other alleviating, precipitating or modifying factors - Related Data Home Medications Medication Instructions Recorded Confirmed ALPRAZolam [Xanax] 0.5 mg PO DAILY 06/12/21 07/03/21 Dextroamphetamine/Amphetamine 20 mg PO BID 06/12/21 07/03/21 [Adderall] Levothyroxine Sodium [Synthroid] 125 mcg PO DAILY 06/12/21 07/03/21 Clotrimazole/Betameth Cream 1 applic TOPICAL BID 07/03/21 07/03/21 [Lotrisone] atenoloL [Tenormin] 50 mg PO BID 07/03/21 07/03/21 Allergies Allergy/AdvReac Type Severity Reaction Status Date / Time metoclopramide [From Reglan] Allergy Rash/Hives Verified 07/03/21 21:54 morphine Allergy Rash/Hives Verified 07/03/21 21:54 Penicillins Allergy Anaphylaxis Verified 07/03/21 21:54 Review of Systems ROS Statement: Those systems with pertinent positive or pertinent negative responses have been documented in the HPI. ROS Other: All systems not noted in ROS Statement are negative. Past Medical History Past Medical History: GERD/Reflux, Hypertension, Thyroid Disorder Additional Past Medical History / Comment(s): Bowel obstruction History of Any Multi-Drug Resistant Organisms: None Reported Past Surgical History: Section Additional Past Surgical History / Comment(s): Abd. Anastomosis, Truncal Vagatomy, Omental mass excision. Past Anesthesia/Blood Transfusion Reactions: No Reported Reaction Past Psychological History: Anxiety, Depression Smoking Status: Never smoker Past Alcohol Use History: None Reported Past Drug Use History: None Reported General Exam Limitations: no limitations Course Vital Signs 07/03/21 17:18 Temperature 98.5 F Pulse Rate 64 Respiratory 20 Rate Blood Pressure 168/102 O2 Sat by Pulse 100 Oximetry - Reevaluation(s) Reevaluation #1: spoke with Dr. ephraim fermin to consult on patient for n/v symptoms 07/03/21 21:58 Reevaluation #2: Spoke with Dr. Scott who agreed to admit the patient 07/03/21 22:05 Medical Decision Making - Medical Decision Making Upon arrival patient is placed in room 29. There are history and physical exam is performed. IV is established. Laboratory studies were conducted and the patient went for a CT of her abdomen and pelvis. Laboratory studies are reviewed. Potassium 3.1. Urinalysis demonstrates 50 white blood cells, rare bacteria. CT of the abdomen and pelvis is performed and demonstrates possible multifocal pyelonephritis. As the patient has not been able to hold down any food or drink attempt abdominal bloating and did recommend hospitalization with surgery and urology to consult. Patient will be given one dose of antibiotics until evaluated by specialist. I did contact Dr. Torres who agreed to evaluate the patient in regards to her nausea, vomiting and diarrhea. Urology will be placed on consult. Spoke with Dr. Charles who agreed to admit the patient. She remained in stable condition awaiting a bed - Lab Data Result diagrams: 07/03/21 19:21 07/03/21 19:21 Lab Results 07/03/21 07/03/21 07/03/21 Range/Units 19:21 19:21 19:21 WBC 6.6 (3.8-10.6) k/uL RBC 4.29 (3.80-5.40) m/uL Hgb 9.8 L (11.4-16.0) gm/dL Hct 32.7 L (34.0-46.0) % MCV 76.2 L (80.0-100.0) fL MCH 22.8 L (25.0-35.0) pg MCHC 30.0 L (31.0-37.0) g/dL RDW 18.2 H (11.5-15.5) % Plt Count 338 (150-450) k/uL MPV 6.9 Neutrophils % 68 % Lymphocytes % 22 % Monocytes % 6 % Eosinophils % 1 % Basophils % 1 % Neutrophils # 4.5 (1.3-7.7) k/uL Lymphocytes # 1.5 (1.0-4.8) k/uL Monocytes # 0.4 (0-1.0) k/uL Eosinophils # 0.1 (0-0.7) k/uL Basophils # 0.1 (0-0.2) k/uL Hypochromasia Moderate Anisocytosis Slight Microcytosis Slight Sodium 139 (137-145) mmol/L Potassium 3.1 L (3.5-5.1) mmol/L Chloride 106 (98-107) mmol/L Carbon Dioxide 22 (22-30) mmol/L Anion Gap 11 mmol/L BUN 9 (7-17) mg/dL Creatinine 0.87 (0.52-1.04) mg/dL Est GFR (CKD-EPI)AfAm >90 (>60 ml/min/1.73 sqM) Est GFR (CKD-EPI)NonAf 82 (>60 ml/min/1.73 sqM) Glucose 105 H (74-99) mg/dL Plasma Lactic Acid Benigno (0.7-2.0) mmol/L Calcium 9.1 (8.4-10.2) mg/dL Total Bilirubin 0.4 (0.2-1.3) mg/dL AST 29 (14-36) U/L ALT 13 (4-34) U/L Alkaline Phosphatase 92 (38-126) U/L Total Protein 7.0 (6.3-8.2) g/dL Albumin 3.8 (3.5-5.0) g/dL Lipase 132 (23-300) U/L Urine Color Yellow Urine Appearance Cloudy H (Clear) Urine pH 6.5 (5.0-8.0) Ur Specific [place] 1.019 (1.001-1.035) Urine Protein 3+ H (Negative) Urine Glucose (UA) Negative (Negative) Urine Ketones Negative (Negative) Urine Blood Negative (Negative) Urine Nitrite Negative (Negative) Urine Bilirubin Negative (Negative) Urine Urobilinogen <2.0 (<2.0) mg/dL Ur Leukocyte Esterase Small H (Negative) Urine RBC 5 (0-5) /hpf Urine WBC 58 H (0-5) /hpf Ur Squamous Epith Cells 3 (0-4) /hpf Urine Bacteria Rare H (None) /hpf Urine Mucus Few H (None) /hpf 07/03/21 Range/Units 19:21 WBC (3.8-10.6) k/uL RBC (3.80-5.40) m/uL Hgb (11.4-16.0) gm/dL Hct (34.0-46.0) % MCV (80.0-100.0) fL MCH (25.0-35.0) pg MCHC (31.0-37.0) g/dL RDW (11.5-15.5) % Plt Count (150-450) k/uL MPV Neutrophils % % Lymphocytes % % Monocytes % % Eosinophils % % Basophils % % Neutrophils # (1.3-7.7) k/uL Lymphocytes # (1.0-4.8) k/uL Monocytes # (0-1.0) k/uL Eosinophils # (0-0.7) k/uL Basophils # (0-0.2) k/uL Hypochromasia Anisocytosis Microcytosis Sodium (137-145) mmol/L Potassium (3.5-5.1) mmol/L Chloride (98-107) mmol/L Carbon Dioxide (22-30) mmol/L Anion Gap mmol/L BUN (7-17) mg/dL Creatinine (0.52-1.04) mg/dL Est GFR (CKD-EPI)AfAm (>60 ml/min/1.73 sqM) Est GFR (CKD-EPI)NonAf (>60 ml/min/1.73 sqM) Glucose (74-99) mg/dL Plasma Lactic Acid Benigno 0.9 (0.7-2.0) mmol/L Calcium (8.4-10.2) mg/dL Total Bilirubin (0.2-1.3) mg/dL AST (14-36) U/L ALT (4-34) U/L Alkaline Phosphatase (38-126) U/L Total Protein (6.3-8.2) g/dL Albumin (3.5-5.0) g/dL Lipase (23-300) U/L Urine Color Urine Appearance (Clear) Urine pH (5.0-8.0) Ur Specific [place] (1.001-1.035) Urine Protein (Negative) Urine Glucose (UA) (Negative) Urine Ketones (Negative) Urine Blood (Negative) Urine Nitrite (Negative) Urine Bilirubin (Negative) Urine Urobilinogen (<2.0) mg/dL Ur Leukocyte Esterase (Negative) Urine RBC (0-5) /hpf Urine WBC (0-5) /hpf Ur Squamous Epith Cells (0-4) /hpf Urine Bacteria (None) /hpf Urine Mucus (None) /hpf Disposition Clinical Impression: Abdominal pain, Nausea and vomiting, Pyelonephritis Disposition: ADMITTED IP TO THIS [facility] Condition: Stable Is patient prescribed a controlled substance at d/c from ED?: No Decision to Admit Reason: Admit from EC Decision Date: 07/03/21 Decision Time: 22:13
[2021-07-03] MEDS ORDERED: CLINDAMYCIN 600 MG in DEXTROSE 5% IN WATER 50 ML IVPB ONE ×2 (22:00)
[2021-07-03] MEDS ORDERED: ACETAMINOPHEN ORAL SUSP 160 MG/5 ML CUP PO PRN (22:11)
[2021-07-03] MEDS ORDERED: NALOXONE 0.4 MG/ML 1 ML VIAL IV PRN (22:14)
[2021-07-04] MEDS: POTASSIUM CHLORIDE 10 MEQ in WATER FOR INJECTION 1 100ML.BAG IVPB SCH ×2 (03:09→05:08)
[2021-07-04] MEDS: LEVOFLOXACIN 500 MG TAB PO SCH ×2 (03:09→08:35)
[2021-07-04 03:39] LABS: African American GFR (CKD) >90 (>60 ml/min/1.73 sqM); Anion Gap 9 mmol/L; Blood Urea Nitrogen 7 mg/dL (7-17); Calcium 8.4 mg/dL (8.4-10.2); Carbon Dioxide 21 mmol/L (22-30); Chloride 110 mmol/L (98-107); Glucose 90 mg/dL (74-99); Non-African American GFR(CKD) 82 (>60 ml/min/1.73 sqM); Potassium 2.8 mmol/L (3.5-5.1); Sodium 140 mmol/L (137-145)
[2021-07-04 03:57] LABS: Anisocytosis Slight; Basophils # (A) 0.1 k/uL (0-0.2); Basophils % (A) 1 %; Eosinophils % (A) 1 %; HCT 27.3 % (34.0-46.0); HGB 8.5 gm/dL (11.4-16.0); Hypochromasia Moderate; Lymphocytes # (A) 1.3 k/uL (1.0-4.8); Lymphocytes % (A) 26 %; MCH 23.3 pg (25.0-35.0); MCHC 31.2 g/dL (31.0-37.0); MCV 74.5 fL (80.0-100.0); Mean Platelet Volume 7.6; Microcytosis Moderate; Monocytes # (A) 0.3 k/uL (0-1.0); Monocytes % (A) 5 %; Neutrophils # (A) 3.3 k/uL (1.3-7.7); Neutrophils % (A) 65 %; Platelet Count 322 k/uL (150-450); RBC 3.66 m/uL (3.80-5.40); RDW 18.5 % (11.5-15.5); WBC 5.1 k/uL (3.8-10.6)
[2021-07-04] MEDS: ACETAMINOPHEN TAB 325 MG TAB PO PRN ×2 (04:59→12:34)
[2021-07-04] MEDS: SODIUM CHLORIDE 0.9% 1,000 ML IV SCH ×3 (05:01→18:08)
[2021-07-04] MEDS: LEVOTHYROXINE 125 MCG TAB PO SCH (05:42)
[2021-07-04] MEDS: ALPRAZolam 0.5 MG TAB PO SCH (08:35)
[2021-07-04] MEDS: atenoloL 50 MG TAB PO SCH ×2 (08:36→21:11)
[2021-07-04] MEDS: NON FORMULARY DRUG (Dextroamphetamine/Amphetamine [Adderall] 20 MG Tablet) PO SCH ×2 (08:42→21:05)
--- NOTE | 2021-07-04 13:59 | P.GSCN ---
History of Present Illness Consult date: 07/04/21 History of present illness: CHIEF COMPLAINT: Abdominal pain HISTORY OF PRESENT ILLNESS: This is a 41-year-old female with recent hospitalization with right kidney stones and had undergone lithotripsy on 06/25/2021. 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 During her previous hospitalization patient was found to have gallstones and there was discussion about completing cholecystectomy outpatient. Since then patient presents with abdominal pain and abdominal distention over the last couple of days. She is unable to eat or drink anything due to it causing pain. She reports that she can swallow without difficulty. Her abdomen has become more distended since yesterday. She has been having bowel movements. She denies any blood in her stools. She currently denies any urinary symptoms. Surgical services been consult in regards to patient's abdominal pain and vomiting. She denies any fever, chills or sweats. PAST MEDICAL HISTORY: GERD, hypertension, hypothyroidism PAST SURGICAL HISTORY: , Whipple procedure, lithotripsy MEDICATIONS: See list. ALLERGIES: See list. SOCIAL HISTORY: No illicit drug use. REVIEW OF SYSTEMS: CONSTITUTIONAL: Denies fever or chills. HEENT: Denies blurred vision, vision changes, or eye pain. Denies hemoptysis CARDIOVASCULAR: Denies chest pain or pressure. RESPIRATORY: No shortness of breath. GASTROINTESTINAL: See HPI for pertinent findings HEMATOLOGIC: Denies bleeding disorders. GENITOURINARY: Denies any blood in urine or increased urinary frequency. SKIN: Denies pruitis. Denies rash. PHYSICAL EXAM: VITAL SIGNS: Reviewed GENERAL: Well-developed in no acute distress. HEENT: No sclera icterus. Extraocular movements grossly intact. Moist buccal mucosa. Head is atraumatic, normocephalic. No nasal drainage. ABDOMEN: Distended mild epigastric tenderness NEUROLOGIC: Alert and oriented. Cranial nerves II through XII grossly intact. LABORATORY DATA: WBC 5.1 hemoglobin is up from 9.8-8.5 platelets 322 sodium 140 potassium is 2.8 BUN is 7 creatinine 0.87 LFTs normal Lipase normal Urinalysis with evidence of infection with leukocyte esterase COVID-19 not detected IMAGING: Computed tomography scan and pelvis with IV contrast shows multiple bilateral renal calculi. There is clearing of the right side obstruction and calculus at the ureteropelvic junction compared to old exam. Kidneys are somewhat enlarged and there is a left side perinephric fluid. There is patchy heterogeneity of the cortical enhancement of both kidneys and more noticeably on the right side. This could relate to multifocal pyelonephritis or other nephritis. Heterogeneity of in the kidneys appears worse on the left side and slightly improved on the right compared to old exam. ASSESSMENT: 1. Abdominal pain with distention and vomiting 2. Pyelonephritis 3. History of chronic cholelithiasis 4. Kidney stones 5. Hypokalemia PLAN: -Further recommendations forthcoming per surgeon -Continue antibiotics for pyelonephritis -Continue to correct potassium -Continue clear liquid diet -Continue IV fluids -Agree with urology consult -Continue supportive care Thank you for this consultation Physician [employer] note has been reviewed by physician. Signing provider agrees with the documented findings, assessment, and plan of care. Past Medical History Past Medical History: GERD/Reflux, Hypertension, Thyroid Disorder Additional Past Medical History / Comment(s): Bowel obstruction History of Any Multi-Drug Resistant Organisms: None Reported Past Surgical History: Section Additional Past Surgical History / Comment(s): Abd. Anastomosis, Truncal Vagatomy, Omental mass excision. Past Anesthesia/Blood Transfusion Reactions: No Reported Reaction Past Psychological History: Anxiety, Depression Smoking Status: Never smoker Past Alcohol Use History: None Reported Past Drug Use History: None Reported Medications and Allergies Home Medications Medication Instructions Recorded Confirmed Type ALPRAZolam [Xanax] 0.5 mg PO DAILY 06/12/21 07/03/21 History Dextroamphetamine/Amphetamine 20 mg PO BID 06/12/21 07/03/21 History [Adderall] Levothyroxine Sodium [Synthroid] 125 mcg PO DAILY 06/12/21 07/03/21 History Clotrimazole/Betameth Cream 1 applic TOPICAL BID 07/03/21 07/03/21 History [Lotrisone] atenoloL [Tenormin] 50 mg PO BID 07/03/21 07/03/21 History Allergies Allergy/AdvReac Type Severity Reaction Status Date / Time metoclopramide [From Reglan] Allergy Rash/Hives Verified 07/03/21 21:54 morphine Allergy Rash/Hives Verified 07/03/21 21:54 Penicillins Allergy Anaphylaxis Verified 07/03/21 21:54 Surgical - Exam Vital Signs Temp Pulse Resp BP Pulse Ox 98.5 F 64 20 168/102 100 07/03/21 17:18 07/03/21 17:18 07/03/21 17:18 07/03/21 17:18 07/03/21 17:18 Results - Labs 07/04/21 03:08 07/04/21 03:08 Abnormal Lab Results - Last 24 Hours (Table) 07/03/21 07/03/21 07/03/21 Range/Units 19:21 19:21 19:21 RBC (3.80-5.40) m/uL Hgb 9.8 L (11.4-16.0) gm/dL Hct 32.7 L (34.0-46.0) % MCV 76.2 L (80.0-100.0) fL MCH 22.8 L (25.0-35.0) pg MCHC 30.0 L (31.0-37.0) g/dL RDW 18.2 H (11.5-15.5) % Potassium 3.1 L (3.5-5.1) mmol/L Chloride (98-107) mmol/L Carbon Dioxide (22-30) mmol/L Glucose 105 H (74-99) mg/dL Urine Appearance Cloudy H (Clear) Urine Protein 3+ H (Negative) Ur Leukocyte Esterase Small H (Negative) Urine WBC 58 H (0-5) /hpf Urine Bacteria Rare H (None) /hpf Urine Mucus Few H (None) /hpf 07/04/21 07/04/21 Range/Units 03:08 03:08 RBC 3.66 L (3.80-5.40) m/uL Hgb 8.5 L (11.4-16.0) gm/dL Hct 27.3 L (34.0-46.0) % MCV 74.5 L (80.0-100.0) fL MCH 23.3 L (25.0-35.0) pg MCHC (31.0-37.0) g/dL RDW 18.5 H (11.5-15.5) % Potassium 2.8 L (3.5-5.1) mmol/L Chloride 110 H (98-107) mmol/L Carbon Dioxide 21 L (22-30) mmol/L Glucose (74-99) mg/dL Urine Appearance (Clear) Urine Protein (Negative) Ur Leukocyte Esterase (Negative) Urine WBC (0-5) /hpf Urine Bacteria (None) /hpf Urine Mucus (None) /hpf Microbiology - Last 24 Hours (Table) 07/03/21 19:21 Urine Culture - Preliminary Urine,Clean Catch Diabetes panel 07/03/21 07/04/21 Range/Units 19: 03:08 Sodium 139 140 (137-145) mmol/L Potassium 3.1 L 2.8 L (3.5-5.1) mmol/L Chloride 106 110 H (98-107) mmol/L Carbon Dioxide 22 21 L (22-30) mmol/L BUN 9 7 (7-17) mg/dL Creatinine 0.87 0.87 (0.52-1.04) mg/dL Glucose 105 H 90 (74-99) mg/dL Calcium 9.1 8.4 (8.4-10.2) mg/dL AST 29 (14-36) U/L ALT 13 (4-34) U/L Alkaline Phosphatase 92 (38-126) U/L Total Protein 7.0 (6.3-8.2) g/dL Albumin 3.8 (3.5-5.0) g/dL Calcium panel 07/03/21 07/04/21 Range/Units 19: 03:08 Calcium 9.1 8.4 (8.4-10.2) mg/dL Albumin 3.8 (3.5-5.0) g/dL Pituitary panel 07/03/21 07/04/21 Range/Units 19: 03:08 Sodium 139 140 (137-145) mmol/L Potassium 3.1 L 2.8 L (3.5-5.1) mmol/L Chloride 106 110 H (98-107) mmol/L Carbon Dioxide 22 21 L (22-30) mmol/L BUN 9 7 (7-17) mg/dL Creatinine 0.87 0.87 (0.52-1.04) mg/dL Glucose 105 H 90 (74-99) mg/dL Calcium 9.1 8.4 (8.4-10.2) mg/dL Adrenal panel 07/03/21 07/04/21 Range/Units 19: 03:08 Sodium 139 140 (137-145) mmol/L Potassium 3.1 L 2.8 L (3.5-5.1) mmol/L Chloride 106 110 H (98-107) mmol/L Carbon Dioxide 22 21 L (22-30) mmol/L BUN 9 7 (7-17) mg/dL Creatinine 0.87 0.87 (0.52-1.04) mg/dL Glucose 105 H 90 (74-99) mg/dL Calcium 9.1 8.4 (8.4-10.2) mg/dL Total Bilirubin 0.4 (0.2-1.3) mg/dL AST 29 (14-36) U/L ALT 13 (4-34) U/L Alkaline Phosphatase 92 (38-126) U/L Total Protein 7.0 (6.3-8.2) g/dL Albumin 3.8 (3.5-5.0) g/dL
[2021-07-04] MEDS: ONDANSETRON 4 MG/2 ML VIAL IVP PRN (16:31)
--- NOTE | 2021-07-04 16:33 | P.GSCN ---
History of Present Illness Consult date: 07/04/21 History of present illness: 41 yo female admitted to the hospital with abdominal pain, associated with distention with N/V. She underwent right sided ureteroscopy on 06/25 for right sided ureteral stone. She did well post operatively. On presentation to the ED she underwent CT abd/Pelvis which showed no hydronephrosis on the right sided, and bilateral non-obstructive stones. Denies any gross hematuria, dysuria or flank pain. Review of Systems - Constitutional Reports chills, Reports weakness, Denies fever - EENT Ears, nose, mouth and throat: Denies dysphagia - Cardiovascular Denies chest pain, Denies shortness of breath - Respiratory Denies cough, Denies 7 - Gastrointestinal Reports abdominal pain, Reports nausea, Reports vomiting - Genitourinary Genitourinary: Denies dysuria, Denies hematuria - Integumentary Denies rash, Denies unusual bruising - Neurological Denies headaches, Denies syncope Past Medical History Past Medical History: GERD/Reflux, Hypertension, Thyroid Disorder Additional Past Medical History / Comment(s): Bowel obstruction History of Any Multi-Drug Resistant Organisms: None Reported Past Surgical History: Section Additional Past Surgical History / Comment(s): Abd. Anastomosis, Truncal Vagatomy, Omental mass excision. Past Anesthesia/Blood Transfusion Reactions: No Reported Reaction Past Psychological History: Anxiety, Depression Smoking Status: Never smoker Past Alcohol Use History: None Reported Past Drug Use History: None Reported Medications and Allergies Home Medications Medication Instructions Recorded Confirmed Type ALPRAZolam [Xanax] 0.5 mg PO DAILY 06/12/21 07/03/21 History Dextroamphetamine/Amphetamine 20 mg PO BID 06/12/21 07/03/21 History [Adderall] Levothyroxine Sodium [Synthroid] 125 mcg PO DAILY 06/12/21 07/03/21 History Clotrimazole/Betameth Cream 1 applic TOPICAL BID 07/03/21 07/03/21 History [Lotrisone] atenoloL [Tenormin] 50 mg PO BID 07/03/21 07/03/21 History Allergies Allergy/AdvReac Type Severity Reaction Status Date / Time metoclopramide [From Reglan] Allergy Rash/Hives Verified 07/03/21 21:54 morphine Allergy Rash/Hives Verified 07/03/21 21:54 Penicillins Allergy Anaphylaxis Verified 07/03/21 21:54 Surgical - Exam Vital Signs Temp Pulse Resp BP Pulse Ox 98.5 F 64 20 168/102 100 07/03/21 17:18 07/03/21 17:18 07/03/21 17:18 07/03/21 17:18 07/03/21 17:18 - General well developed, well nourished, no distress, moderate pain - Eyes PERRL, normal ocular movement - ENT normal nares, normal mucosa - Respiratory normal expansion, normal respiratory effort - Abdomen Abdomen: soft, tender, distended - Psychiatric oriented to time, oriented to person, oriented to place Results - Labs 07/04/21 03:08 07/04/21 03:08 Abnormal Lab Results - Last 24 Hours (Table) 07/03/21 07/03/21 07/03/21 Range/Units 19:21 19:21 19:21 RBC (3.80-5.40) m/uL Hgb 9.8 L (11.4-16.0) gm/dL Hct 32.7 L (34.0-46.0) % MCV 76.2 L (80.0-100.0) fL MCH 22.8 L (25.0-35.0) pg MCHC 30.0 L (31.0-37.0) g/dL RDW 18.2 H (11.5-15.5) % Potassium 3.1 L (3.5-5.1) mmol/L Chloride (98-107) mmol/L Carbon Dioxide (22-30) mmol/L Glucose 105 H (74-99) mg/dL Urine Appearance Cloudy H (Clear) Urine Protein 3+ H (Negative) Ur Leukocyte Esterase Small H (Negative) Urine WBC 58 H (0-5) /hpf Urine Bacteria Rare H (None) /hpf Urine Mucus Few H (None) /hpf 07/04/21 07/04/21 Range/Units 03:08 03:08 RBC 3.66 L (3.80-5.40) m/uL Hgb 8.5 L (11.4-16.0) gm/dL Hct 27.3 L (34.0-46.0) % MCV 74.5 L (80.0-100.0) fL MCH 23.3 L (25.0-35.0) pg MCHC (31.0-37.0) g/dL RDW 18.5 H (11.5-15.5) % Potassium 2.8 L (3.5-5.1) mmol/L Chloride 110 H (98-107) mmol/L Carbon Dioxide 21 L (22-30) mmol/L Glucose (74-99) mg/dL Urine Appearance (Clear) Urine Protein (Negative) Ur Leukocyte Esterase (Negative) Urine WBC (0-5) /hpf Urine Bacteria (None) /hpf Urine Mucus (None) /hpf Microbiology - Last 24 Hours (Table) 07/03/21 19:21 Urine Culture - Preliminary Urine,Clean Catch Diabetes panel 07/03/21 07/04/21 Range/Units 19: 03:08 Sodium 139 140 (137-145) mmol/L Potassium 3.1 L 2.8 L (3.5-5.1) mmol/L Chloride 106 110 H (98-107) mmol/L Carbon Dioxide 22 21 L (22-30) mmol/L BUN 9 7 (7-17) mg/dL Creatinine 0.87 0.87 (0.52-1.04) mg/dL Glucose 105 H 90 (74-99) mg/dL Calcium 9.1 8.4 (8.4-10.2) mg/dL AST 29 (14-36) U/L ALT 13 (4-34) U/L Alkaline Phosphatase 92 (38-126) U/L Total Protein 7.0 (6.3-8.2) g/dL Albumin 3.8 (3.5-5.0) g/dL Calcium panel 07/03/21 07/04/21 Range/Units 19: 03:08 Calcium 9.1 8.4 (8.4-10.2) mg/dL Albumin 3.8 (3.5-5.0) g/dL Pituitary panel 07/03/21 07/04/21 Range/Units 19: 03:08 Sodium 139 140 (137-145) mmol/L Potassium 3.1 L 2.8 L (3.5-5.1) mmol/L Chloride 106 110 H (98-107) mmol/L Carbon Dioxide 22 21 L (22-30) mmol/L BUN 9 7 (7-17) mg/dL Creatinine 0.87 0.87 (0.52-1.04) mg/dL Glucose 105 H 90 (74-99) mg/dL Calcium 9.1 8.4 (8.4-10.2) mg/dL Adrenal panel 07/03/21 07/04/21 Range/Units 19:21 03:08 Sodium 139 140 (137-145) mmol/L Potassium 3.1 L 2.8 L (3.5-5.1) mmol/L Chloride 106 110 H (98-107) mmol/L Carbon Dioxide 22 21 L (22-30) mmol/L BUN 9 7 (7-17) mg/dL Creatinine 0.87 0.87 (0.52-1.04) mg/dL Glucose 105 H 90 (74-99) mg/dL Calcium 9.1 8.4 (8.4-10.2) mg/dL Total Bilirubin 0.4 (0.2-1.3) mg/dL AST 29 (14-36) U/L ALT 13 (4-34) U/L Alkaline Phosphatase 92 (38-126) U/L Total Protein 7.0 (6.3-8.2) g/dL Albumin 3.8 (3.5-5.0) g/dL Assessment and Plan Assessment: 41 yo female admitted to the hospital with abdominal pain and distention. She is S/P right sided URS with holmium laser. CT showed no hydro, and bilateral non- obstructive stones. Of note rensocopy was performed on the right side, and the stone was not visualized on Ureteroscopy. Discussed the pain is not releated to her kidney stones, given lack of hydro. -WIll f/u on urine culture, recommend treating if evidence of UTI given he recent surgery and sepsis -Can f/u with Urology if develops symptoms from her stones.
[2021-07-04] MEDS: traMADol 50 MG TAB PO PRN (18:14)
[2021-07-05] MEDS: ONDANSETRON 4 MG/2 ML VIAL IVP PRN ×2 (00:34→17:56)
[2021-07-05] MEDS: traMADol 50 MG TAB PO PRN ×3 (00:35→14:38)
[2021-07-05] MEDS: POTASSIUM CHLORIDE 10 MEQ in WATER FOR INJECTION 1 100ML.BAG IVPB SCH ×4 (00:49→04:18)
[2021-07-05] MEDS: LEVOTHYROXINE 125 MCG TAB PO SCH (05:52)
[2021-07-05 07:45] LABS: Anisocytosis Slight; Basophils # (A) 0.1 k/uL (0-0.2); Basophils % (A) 1 %; Eosinophils # (A) 0.1 k/uL (0-0.7); Eosinophils % (A) 1 %; HCT 28.2 % (34.0-46.0); HGB 8.2 gm/dL (11.4-16.0); Hypochromasia Marked; Lymphocytes % (A) 20 %; MCH 22.9 pg (25.0-35.0); MCHC 29.1 g/dL (31.0-37.0); MCV 78.7 fL (80.0-100.0); Mean Platelet Volume 7.7; Microcytosis Slight; Monocytes # (A) 0.3 k/uL (0-1.0); Monocytes % (A) 6 %; Neutrophils # (A) 3.5 k/uL (1.3-7.7); Neutrophils % (A) 69 %; Platelet Count 256 k/uL (150-450); RBC 3.58 m/uL (3.80-5.40); RDW 18.5 % (11.5-15.5)
[2021-07-05] MEDS: NON FORMULARY DRUG (Dextroamphetamine/Amphetamine [Adderall] 20 MG Tablet) PO SCH ×2 (08:05→20:40)
[2021-07-05] MEDS: LEVOFLOXACIN 500 MG TAB PO SCH (08:05)
[2021-07-05] MEDS: ALPRAZolam 0.5 MG TAB PO SCH (08:06)
[2021-07-05] MEDS: atenoloL 50 MG TAB PO SCH ×2 (08:06→21:27)
[2021-07-05 08:46] LABS: ALT 11 U/L (4-34); AST 21 U/L (14-36); African American GFR (CKD) >90 (>60 ml/min/1.73 sqM); Albumin 2.9 g/dL (3.5-5.0); Alkaline Phosphatase 69 U/L (38-126); Anion Gap 7 mmol/L; Blood Urea Nitrogen 3 mg/dL (7-17); Calcium 8.6 mg/dL (8.4-10.2); Carbon Dioxide 23 mmol/L (22-30); Chloride 111 mmol/L (98-107); Globulin 2.8 g/dL; Glucose 85 mg/dL (74-99); Non-African American GFR(CKD) 85 (>60 ml/min/1.73 sqM); Potassium 3.7 mmol/L (3.5-5.1); Sodium 141 mmol/L (137-145); Total Bilirubin 0.2 mg/dL (0.2-1.3); Total Protein 5.7 g/dL (6.3-8.2)
--- NOTE | 2021-07-05 08:50 | HP ---
HISTORY AND PHYSICAL HISTORY OF PRESENT ILLNESS: 41-year-old white female came in with progressive nausea, vomiting, abdominal pain, unable to eat or drink for the last 3 days and diffuse abdominal pain. History of ureteral stone with previous stent, lithotripsy, recent pyelonephritis. Looks like pyelonephritis maybe on return with worsening flank pain and high white cells in the urine. He feels very weak with abdominal pain diffusely across the abdomen. Feels a bit better today after having bowel movements in the last couple days. REVIEW OF SYSTEMS: Fourteen-point review of systems negative except for mentioned in HPI. PAST MEDICAL HISTORY: GERD, hypertension, hypothyroidism, migraines, abdominal anastomosis, truncal vagotomy, omental mass excision, anxiety, depression, prior C-sections. MEDICATIONS: Home medicines : Xanax 0.5 daily, Adderall 20 b.i.d., Synthroid 125 daily, Lotrisone topically b.i.d., atenolol 50 b.i.d. ALLERGIES: PENICILLIN, MORPHINE, REGLAN. PHYSICAL EXAMINATION: Temp 98, pulse 60s, respiratory 16-20, blood pressure 168/100, O2 100% on room air. She is weak, fatigued integument, dry mucous membranes. Poor skin turgor. PSYCH: Fair mood and affect. NEUROLOGIC: Alert, oriented x3. She looks weak, fatigued, cachectic. ABDOMEN: Diffuse tenderness, diffuse swelling of the abdomen, mild tenderness. Hemoglobin is 8.5, white count 5.1 sodium 146, potassium 2.8. ASSESSMENT AND PLAN: 1. Abdominal pain, distention. 2. Pyelonephritis. 3. Renal stones. 4. Possible constipation. 5. Possible gastritis. 6. Possibly recurrence of pyelonephritis. Continue with broad-spectrum antibiotics. Surgical and consult. Pain control. Hypokalemia. Potassium replacement protocol. Please see further orders. MMODL / IJN: [id number] /
[2021-07-05] MEDS: SODIUM CHLORIDE 0.9% 1,000 ML IV SCH ×3 (09:40→21:28)
--- NOTE | 2021-07-05 14:11 | P.PN ---
Subjective Progress Note Date: 07/05/21 CHIEF COMPLAINT: Abdominal pain and abdominal distention HISTORY OF PRESENT ILLNESS: Patient had loose stools last night. She reports some improvement in her abdominal pain. She is still distended. She reports that the distention is worse after eating. She is also noted that her stools have been dark. She has been having nausea. She is currently on antibiotics for possible pyelonephritis. Patient seen by urology. Patient's potassium was replaced. Afebrile. WBC is 5.0 hemoglobin 8.2 platelets 256 sodium 141 potassium is 3.7 cr 0.84 PHYSICAL EXAM: VITAL SIGNS: Reviewed. GENERAL: Well-developed in no acute distress. HEENT: No sclera icterus. Extraocular movements grossly intact. Moist buccal mucosa. Head is atraumatic, normocephalic. ABDOMEN: Soft. Distended Nontender. NEUROLOGIC: Alert and oriented. Cranial nerves II through XII grossly intact. ASSESSMENT: 1. Abdominal pain with distention and vomiting. Likely due to an ileus secondary to her pyelonephritis and hypokalemia 2. Pyelonephritis 3. History of chronic cholelithiasis 4. Kidney stones 5. Hypokalemia 6. Anemia PLAN: -No surgical intervention planned -Continue conservative management -Continue antibiotics for pyelonephritis -Advance diet to full liquids -Continue IV fluids -Continue supportive care -Encourage patient to ambulate Physician Rn Patient Care note has been reviewed by physician. Signing provider agrees with the documented findings, assessment, and plan of care. Objective - Vital Signs Vital signs: Vital Signs Temp 98.2 F 07/05/21 07:00 Pulse 55 L 07/05/21 07:00 Resp 16 07/05/21 07:00 BP 174/88 07/05/21 07:00 Pulse Ox 100 07/05/21 07:00 Intake & Output 07/04/21 07/05/21 07/05/21 18:59 06:59 18:59 Intake Total 200 640 Balance 200 640 Weight 63.503 kg Intake: Oral 200 640 Other: Voiding Method Toilet Toilet # Voids 2 3 - Labs CBC & Chem 7: 07/05/21 07:10 07/05/21 07:10 Labs: Abnormal Lab Results - Last 24 Hours (Table) 07/05/21 07/05/21 Range/Units 07:10 07:10 RBC 3.58 L (3.80-5.40) m/uL Hgb 8.2 L (11.4-16.0) gm/dL Hct 28.2 L (34.0-46.0) % MCV 78.7 L (80.0-100.0) fL MCH 22.9 L (25.0-35.0) pg MCHC 29.1 L (31.0-37.0) g/dL RDW 18.5 H (11.5-15.5) % Chloride 111 H (98-107) mmol/L BUN 3 L (7-17) mg/dL Total Protein 5.7 L (6.3-8.2) g/dL Albumin 2.9 L (3.5-5.0) g/dL Microbiology - Last 24 Hours (Table) 07/03/21 19:21 Urine Culture - Final Urine,Clean Catch
[2021-07-05] MEDS: PANTOPRAZOLE 40 MG TABLET PO SCH (14:38)
[2021-07-05] MEDS: amLODIPine 5 MG TAB PO SCH (17:56)
[2021-07-05] MEDS ORDERED: hydrALAZINE HCL 20 MG/ML 1 ML VIAL IVP PRN (23:35)
--- NOTE | 2021-07-06 01:49 | PN ---
PROGRESS NOTE She has had a headache all afternoon, elevated blood pressure is 170s over 100s. Going to restart her blood pressure med for metoprolol up from 50 b.i.d. to 100 b.i.d. and add Norvasc 5 mg daily to control her blood pressure. She is being treated with Levaquin for UTI. Wait for GI physician/surgeon to treat her for abdominal pain and possible gastritis. She is on a clear liquid diet due to nausea, vomiting, and taking Zofran. Hemoglobin is down to 8.2, white count 5.0. Sodium 137, potassium 3.7. Prognosis is guarded. Continue current treatments for abdominal pain, possible constipation, severe hypokalemia. We will monitor potassium in the morning. She was replaced with 40 mEq yesterday thru the IV. PROGNOSIS: Guarded. Watch for nausea, vomiting. MMODL / IJN: [id number] /
[2021-07-06] MEDS: ACETAMINOPHEN TAB 325 MG TAB PO PRN (02:25)
[2021-07-06 06:05] LABS: ALT 13 U/L (4-34); AST 23 U/L (14-36); African American GFR (CKD) >90 (>60 ml/min/1.73 sqM); Albumin/Globulin Ratio 1.1; Alkaline Phosphatase 70 U/L (38-126); Anion Gap 6 mmol/L; Blood Urea Nitrogen 3 mg/dL (7-17); Calcium 8.5 mg/dL (8.4-10.2); Carbon Dioxide 23 mmol/L (22-30); Chloride 109 mmol/L (98-107); Globulin 2.7 g/dL; Glucose 88 mg/dL (74-99); Non-African American GFR(CKD) >90 (>60 ml/min/1.73 sqM); Potassium 3.4 mmol/L (3.5-5.1); Sodium 138 mmol/L (137-145); Total Bilirubin 0.3 mg/dL (0.2-1.3); Total Protein 5.7 g/dL (6.3-8.2)
[2021-07-06] MEDS ORDERED: POTASSIUM CHLORIDE ER 20 MEQ TAB.ER PO STA (08:05)
[2021-07-06 09:33] LABS: Basophils # (A) 0.08 X 10*3/uL (0.00-0.10); Basophils % (A) 1.1 %; Eosinophils # (A) 0.07 X 10*3/uL (0.04-0.35); Eosinophils % (A) 0.9 %; HCT 28.1 % (37.2-46.3); Lymphocytes # (A) 1.51 X 10*3/uL (0.90-5.00); Lymphocytes % (A) 20.2 %; MCH 21.7 pg (27.0-32.0); MCHC 28.5 g/dL (32.0-37.0); MCV 76.2 fL (80.0-97.0); Mean Platelet Volume 10.5 fL (9.5-12.2); Monocytes # (A) 0.59 X 10*3/uL (0.20-1.00); Monocytes % (A) 7.9 %; Neutrophils # (A) 5.19 X 10*3/uL (1.80-7.70); Neutrophils % (A) 69.6 %; Platelet Count 252 X 10*3/uL (140-440); RBC 3.69 X 10*6/uL (4.10-5.20); WBC 7.46 X 10*3/uL (4.50-10.00)
[2021-07-06] MEDS: NON FORMULARY DRUG (Dextroamphetamine/Amphetamine [Adderall] 20 MG Tablet) PO SCH ×2 (10:53→21:18)
[2021-07-06] MEDS: PANTOPRAZOLE 40 MG TABLET PO SCH (10:59)
[2021-07-06] MEDS: traMADol 50 MG TAB PO PRN ×2 (10:59→19:51)
[2021-07-06] MEDS: LEVOFLOXACIN 500 MG TAB PO SCH (11:00)
[2021-07-06] MEDS: ALPRAZolam 0.5 MG TAB PO SCH (11:00)
[2021-07-06] MEDS: atenoloL 50 MG TAB PO SCH ×2 (11:00→21:17)
[2021-07-06] MEDS: LEVOTHYROXINE 125 MCG TAB PO SCH (11:00)
[2021-07-06] MEDS: amLODIPine 5 MG TAB PO SCH (11:00)
[2021-07-06] MEDS: SODIUM CHLORIDE 0.9% 1,000 ML IV SCH ×2 (11:02→23:02)
--- NOTE | 2021-07-06 12:23 | NM ---
EXAMINATION TYPE: NM hepatobiliary w CCK DATE OF EXAM: 07/06/2021 COMPARISON: CT 07/03/2021 HISTORY: Right upper quadrant pain, emesis TECHNIQUE: After the intravenous administration of 5.4 mCi Tc 99m Mebrofenin hepatobiliary scintigrap hy is performed. Immediate images post injection. FINDINGS: There is satisfactory initial accumulation of tracer by the liver. The gallbladder is visualized wit hin 15 minutes. The small bowel activity is noted within 15 minutes. At one hour CCK was administer ed, patient was injected with 1.3 mcg of Kinevac, and gallbladder ejection fraction is calculated at 63 %, in the normal range. Therefore there is no scintigraphic evidence of cystic or common bile argenis t obstruction to suggest acute cholecystitis or gallbladder dyskinesia. IMPRESSION: Exam is within normal limits. Correlate for pyelonephritis.
--- NOTE | 2021-07-06 14:47 | P.PN ---
Subjective Progress Note Date: 07/06/21 CHIEF COMPLAINT: Abdominal pain and abdominal distention HISTORY OF PRESENT ILLNESS: Patient is complaining of some right-sided abdominal pain today. She has been having nausea. She has had prior dark stools. She had HIDA scan completed today that was within normal limits. Ejection fraction 63%. And reports to correlate for pyelonephritis. Patient is currently on antibiotics for pyelonephritis. Afebrile. WBC is 7.46 hemoglobin is 8.0 platelets 252 sodium is 138 potassium is 3.4 BUN is 3 creatinine 0.7 PHYSICAL EXAM: VITAL SIGNS: Reviewed. GENERAL: Well-developed in no acute distress. HEENT: No sclera icterus. Extraocular movements grossly intact. Moist buccal mucosa. Head is atraumatic, normocephalic. ABDOMEN: Soft. Distended NEUROLOGIC: Alert and oriented. Cranial nerves II through XII grossly intact. ASSESSMENT: 1. Abdominal pain with distention and vomiting. Likely due to an ileus secondary to her pyelonephritis and hypokalemia 2. Pyelonephritis 3. History of chronic cholelithiasis. HIDA with a normal EF 4. Kidney stones 5. Hypokalemia 6. Anemia PLAN: -Continue conservative management -Continue to observe patient -Continue antibiotics for pyelonephritis -Continue full liquids -Continue IV fluids -Continue supportive care -Encourage patient to ambulate -Continue PPI -Replace potassium Physician Quarry Manager note has been reviewed by physician. Signing provider agrees with the documented findings, assessment, and plan of care. Objective - Vital Signs Vital signs: Vital Signs Temp 99.1 F 07/06/21 07:00 Pulse 57 L 07/06/21 07:00 Resp 16 07/06/21 07:00 BP 173/84 07/06/21 07:00 Pulse Ox 97 07/06/21 07:00 Intake & Output 07/05/21 07/06/21 07/06/21 18:59 06:59 18:59 Intake Total 1240 Balance 1240 Intake: Intake, IV Titration 600 Amount Sodium Chloride 0.9% 1, 600 000 ml @ 75 mls/hr IV . [id number] MICHELLE Rx#:[id number] Oral 640 Other: Voiding Method Toilet # Voids 1 1 - Labs CBC & Chem 7: 07/06/21 05:13 07/06/21 05:13 Labs: Abnormal Lab Results - Last 24 Hours (Table) 07/06/21 07/06/21 Range/Units 05:13 05:13 RBC 3.69 L (4.10-5.20) X 10*6/uL Hgb 8.0 L (12.0-15.0) g/dL Hct 28.1 L (37.2-46.3) % MCV 76.2 L (80.0-97.0) fL MCH 21.7 L (27.0-32.0) pg MCHC 28.5 L (32.0-37.0) g/dL RDW 20.0 H (11.5-14.5) % Potassium 3.4 L (3.5-5.1) mmol/L Chloride 109 H (98-107) mmol/L BUN 3 L (7-17) mg/dL Total Protein 5.7 L (6.3-8.2) g/dL Albumin 3.0 L (3.5-5.0) g/dL Microbiology - Last 24 Hours (Table) 07/03/21 19:21 Urine Culture - Final Urine,Clean Catch
[2021-07-06] MEDS ORDERED: POTASSIUM CHLORIDE 20 MEQ in WATER FOR INJECTION 1 100ML.BAG IVPB STA (17:23)
[2021-07-06] MEDS: hydrALAZINE HCL 50 MG TAB PO SCH ×2 (17:56→23:01)
[2021-07-06] MEDS: SODIUM FERRIC GLUCONAT-SUCROSE 125 MG in SODIUM CHLORIDE 0.9% 100 ML IVPB SCH (17:56)
[2021-07-07] MEDS: ONDANSETRON 4 MG/2 ML VIAL IVP PRN ×2 (00:15→08:46)
--- NOTE | 2021-07-07 01:15 | PN ---
PROGRESS NOTE This 41-year-old white female was admitted with acute abdominal pain. Diet will be advanced. She wants to be advanced and possibly discharged home tomorrow. Urine is subtherapeutic. UTIs with low colony counts. Her pain is improving. EGD does not want to be done per surgeon. Hemoglobin is 8, a little bit dropping. We are going to start her on Venofer. She has hypertension acceleration. We are going to start hydralazine 50 t.i.d., increase Norvasc to 5 b.i.d. and metoprolol 100 b.i.d. Follow up in the next 24 to 48 hours for possible discharge, as she is tolerating her diet. MMODL / IJN: [id number] /
[2021-07-07 07:32] LABS: African American GFR (CKD) >90 (>60 ml/min/1.73 sqM); Anion Gap 8 mmol/L; Blood Urea Nitrogen 4 mg/dL (7-17); Carbon Dioxide 23 mmol/L (22-30); Chloride 107 mmol/L (98-107); Glucose 109 mg/dL (74-99); Non-African American GFR(CKD) >90 (>60 ml/min/1.73 sqM); Potassium 3.5 mmol/L (3.5-5.1); Sodium 138 mmol/L (137-145)
[2021-07-07 07:46] LABS: Anisocytosis Slight; Basophils # (A) 0.1 k/uL (0-0.2); Basophils % (A) 1 %; Eosinophils % (A) 0 %; HCT 30.7 % (34.0-46.0); HGB 9.4 gm/dL (11.4-16.0); Hypochromasia Slight; Lymphocytes # (A) 0.8 k/uL (1.0-4.8); Lymphocytes % (A) 9 %; MCH 22.7 pg (25.0-35.0); MCHC 30.6 g/dL (31.0-37.0); Mean Platelet Volume 8.1; Microcytosis Moderate; Monocytes # (A) 0.4 k/uL (0-1.0); Monocytes % (A) 4 %; Neutrophils % (A) 85 %; Platelet Count 268 k/uL (150-450); RBC 4.15 m/uL (3.80-5.40); RDW 18.5 % (11.5-15.5); WBC 9.3 k/uL (3.8-10.6)
[2021-07-07] MEDS: LEVOTHYROXINE 125 MCG TAB PO SCH (11:16)
[2021-07-07] MEDS: PANTOPRAZOLE 40 MG TABLET PO SCH (11:16)
[2021-07-07] MEDS: atenoloL 50 MG TAB PO SCH ×2 (11:17→20:17)
[2021-07-07] MEDS: ALPRAZolam 0.5 MG TAB PO SCH (11:17)
[2021-07-07] MEDS: NON FORMULARY DRUG (Dextroamphetamine/Amphetamine [Adderall] 20 MG Tablet) PO SCH ×2 (11:17→19:19)
[2021-07-07] MEDS: hydrALAZINE HCL 50 MG TAB PO SCH ×3 (11:17→20:17)
[2021-07-07] MEDS: amLODIPine 5 MG TAB PO SCH (11:17)
[2021-07-07] MEDS: LEVOFLOXACIN 500 MG TAB PO SCH (11:18)
[2021-07-07] MEDS ORDERED: IOPAMIDOL CONTRAST (ORAL USE) VIAL PO PRN (12:45)
--- NOTE | 2021-07-07 12:46 | P.PN ---
Progress Note - Text Progress Note Date: 07/07/21 Patient has complaints of some epigastric pain. She states she threw up last night. On exam vital signs are stable. Abdomen is soft. History of previous Whipple procedure Chronic abdominal pain Patient undergo repeat CAT scan with oral contrast to evaluate for a possible bowel obstruction.
[2021-07-07] MEDS: SODIUM CHLORIDE 0.9% 1,000 ML IV SCH (13:52)
--- NOTE | 2021-07-07 15:36 | CT ---
EXAMINATION TYPE: CT abdomen pelvis wo con DATE OF EXAM: 07/07/2021 COMPARISON: 07/03/2021 HISTORY: abd pain and vomiting CT DLP: 288 mGycm Automated exposure control for dose reduction was used. Images obtained from the diaphragm to the floor the pelvis without IV contrast. There is oral contras t. Lung bases are clear. There is no pleural effusion. There are bilateral breast implants. Heart size i s fairly normal. There is no pericardial effusion. Liver and spleen appear intact. The bile ducts are not dilated. There is abdominal surgery with apparent resection of the gastric antrum. There is cecilia rojejunostomy. Gallbladder appears normal. The bile ducts are not dilated. There is no evidence of pa ncreatic mass. There is no adrenal mass. Kidneys are large and measure up to 13 cm in length. There is no hydronephr osis. There are bilateral renal calculi that measure up to 7 mm. The ureters are not dilated. Bladder distends smoothly. Uterus is anteverted. There is 3 cm cyst on the right ovary. There is no free flu id in the pelvis. There is no inguinal hernia. There is oral contrast in the small bowel and extending to the ascending colon. There is no evidence of a bowel obstruction. There is no mesenteric edema. There is no ascites or free air. The lumbar vertebra have normal spacing and alignment. Posterior elements are intact. There is no com pression fracture. Bony pelvis is intact. Hip joints are intact. IMPRESSION: Nonobstructing renal calculi. Previous gastric surgery. There is clearing of the left side perinephri c fluid compared to recent exam. Large kidneys not changed compared to recent exam.
[2021-07-07] MEDS: SODIUM FERRIC GLUCONAT-SUCROSE 125 MG in SODIUM CHLORIDE 0.9% 100 ML IVPB SCH (15:47)
[2021-07-07] MEDS: traMADol 50 MG TAB PO PRN (20:17)
[2021-07-07] MEDS: POTASSIUM CHLORIDE ER 20 MEQ TAB.ER PO SCH (22:04)
--- NOTE | 2021-07-08 00:56 | PN ---
PROGRESS NOTE 41-year-old white female who has progressive nausea, vomiting with hyperkalemia, pyelonephritis is healed. Dehydration . Hypertension now improved after we added hydralazine yesterday. 140s over 60s blood pressure. She had 1 episode of emesis last night. CT scan of the abdomen and pelvis showed no significant obstruction. She may have to have EGD or barium swallow if she continues to have further worsening of vomiting which is still not improved despite healing pyelonephritis which CT scan is ordered. Vital signs are improved. Lungs are clear. Cardiovascular S1-S2. Hematology negative Homans'. Psych: Fair mood and affect. ASSESSMENT: 1. Progressive emesis, nausea, vomiting. 2. Status post Whipple's. 3. Status post pyelonephritis. 4. Status post ureteral obstruction. Advanced diet as tolerated. Possibly EGD and barium swallow will be needed. MMODL / IJN: [id number] /
[2021-07-08] MEDS: ONDANSETRON 4 MG/2 ML VIAL IVP PRN ×2 (01:27→09:41)
[2021-07-08] MEDS: SODIUM CHLORIDE 0.9% 1,000 ML IV SCH (03:17)
[2021-07-08] MEDS: LEVOTHYROXINE 125 MCG TAB PO SCH (05:58)
[2021-07-08 07:42] VITALS: BP 148/79; PULSE 60; RESP 16; TEMP 97.7
[2021-07-08] MEDS: LEVOFLOXACIN 500 MG TAB PO SCH (07:50)
[2021-07-08] MEDS: hydrALAZINE HCL 50 MG TAB PO SCH (07:50)
[2021-07-08] MEDS: atenoloL 50 MG TAB PO SCH (07:50)
[2021-07-08] MEDS: PANTOPRAZOLE 40 MG TABLET PO SCH (07:51)
[2021-07-08] MEDS: ALPRAZolam 0.5 MG TAB PO SCH (07:51)
[2021-07-08] MEDS: amLODIPine 5 MG TAB PO SCH (07:51)
[2021-07-08] MEDS: NON FORMULARY DRUG (Dextroamphetamine/Amphetamine [Adderall] 20 MG Tablet) PO SCH (08:35)
[2021-07-08] MEDS: POTASSIUM CHLORIDE ER 20 MEQ TAB.ER PO SCH (08:35)
[2021-07-08] MEDS: SODIUM FERRIC GLUCONAT-SUCROSE 125 MG in SODIUM CHLORIDE 0.9% 100 ML IVPB SCH (08:40)
[2021-07-08] MEDS: traMADol 50 MG TAB PO PRN (09:41)
--- NOTE | 2021-07-08 12:28 | P.PN ---
Progress Note - Text Progress Note Date: 07/08/21 Patient feels better. Her CAT scan performed yesterday shows no evidence of any bowel obstruction. On exam vital signs are stable. Abdomen soft. Patient is stable for discharge home.
--- NOTE | 2021-07-08 22:29 | P.DS ---
Providers Date of admission: 07/06/21 15:42 Expected date of discharge: 07/08/21 Attending physician: Darryl Charles Consults: 07/03/21 22:15 Consult Physician Urgent Consulting Provider: Markie Carvajal Consult Reason/Comments: abd pain, b/l nephritis Do you want consulting provider notified?: Yes 07/03/21 22:16 Consult Physician Urgent Consulting Provider: Yamil Torres Consult Reason/Comments: abd pain, vomiting Do you want consulting provider notified?: Yes Primary care physician: Darryl Charles [facility] Course: Presenting complaint: Abdominal pain Hospital course: I'm rounding for Dr. Darryl Charles today This is a patient prior history of vagotomy and Whipple's procedure for duodenal ulcer/small bowel obstruction, recent ureterolithiasis with hydronephrosis. Presented with abdominal pain. Oral intake is unknown. Significant nausea. Computed tomography scan of the abdomen and pelvis showed multiple bilateral renal calculi. Showed clearing of the right-sided obstruction. Compared to the previous exam. HIDA scan was unremarkable. Patient urine culture was unremarkable. Seen by urology. Not for any further intervention. Patient also seen by Dr. Torres. Cleared. Antibiotics were discontinued. Patient had been very anxious during the hospital stay. According to blood pressure. Though hydralazine is being added. I discussed the case at length with the patient. She'll get a blood pressure machine today and check her blood pressure daily. And follow with Dr. Charles. Discussion and discharge planning more than 35 minutes Consultation: Dr. Torres from general surgery Dr. Carvajal from urology On examination: VITAL SIGNS: 97.7, 60, 16, 148 with 79, 98% room air GENERAL APPEARANCE: Sitting on bed, comfortable HEENT: Normal external appearance of nose and ear. Oral cavity normal EYES: Pupils equal. Conjunctiva normal. NECK: JVD not raised. Mass not palpable. RESPIRATORY: Respiratory effort normal. Lungs clear to auscultation. CARDIOVASCULAR: First and second sounds normal. No edema. ABDOMEN: Soft. Liver and spleen not palpable. No tenderness. No mass palpable. PSYCHIATRY: Alert and oriented x3. Mood and affect likely anxious . Investigations: White count 9.3 hemoglobin 9.4 platelets 268 potassium 3.5 crit 0.68 Coronavirus [PCR]: Not detected Computed tomography scan of the abdomen, HIDA scan, as above Assessment and plan: -Acute dyspepsia. Could be from exacerbation of GERD -GERD -Essential hypertension -Hypothyroid -Anxiety depression not otherwise specified -History of vagotomy and Whipple's procedure Disposition: Home Plan - Discharge Summary Discharge Rx Participant: No New Discharge Prescriptions: New Pantoprazole [Protonix] 40 mg PO AC-BRKFST #30 tab hydrALAZINE HCL [Apresoline] 50 mg PO TID #90 tab Continue Levothyroxine Sodium [Synthroid] 125 mcg PO DAILY ALPRAZolam [Xanax] 0.5 mg PO DAILY Dextroamphetamine/Amphetamine [Adderall] 20 mg PO BID atenoloL [Tenormin] 50 mg PO BID Clotrimazole/Betameth Cream [Lotrisone] 1 applic TOPICAL BID Discharge Medication List ALPRAZolam [Xanax] 0.5 mg PO DAILY 06/12/21 [History] Dextroamphetamine/Amphetamine [Adderall] 20 mg PO BID 06/12/21 [History] Levothyroxine Sodium [Synthroid] 125 mcg PO DAILY 06/12/21 [History] Clotrimazole/Betameth Cream [Lotrisone] 1 applic TOPICAL BID 07/03/21 [History] atenoloL [Tenormin] 50 mg PO BID 07/03/21 [History] Pantoprazole [Protonix] 40 mg PO AC-BRKFST #30 tab 07/08/21 [Rx] hydrALAZINE HCL [Apresoline] 50 mg PO TID #90 tab 07/08/21 [Rx] Follow up Appointment(s)/Referral(s): Darryl Charles MD [Primary Care Provider] - 1-2 days (please call tomorrow for an appointment) Yamil Torres MD [STAFF PHYSICIAN] - 1 Week (please call tomorrow for appointment thank you) Patient Instructions/Handouts: Acute Nausea and Vomiting (GEN), Acute Abdominal Pain (DC) Discharge Disposition: HOME SELF-CARE
== END 2021-07-08 13:50 | disposition home or self-care (01) | DRG 392 ==
LOC: EC 16:45 → 6NMEDSUR 22:14 → OBSVTOIN 07-06 15:42
PROVIDERS: ADMIT Family Medicine; ATTEND Family Medicine
DX: K21.9 Gastro-esophageal reflux disease without esophagitis (principal); K56.7 Ileus, unspecified; E87.6 Hypokalemia; F41.8 Other specified anxiety disorders; Z20.822 Contact with and (suspected) exposure to COVID-19; I10 Essential (primary) hypertension; K80.20 Calculus of gallbladder without cholecystitis without obstruction; G89.29 Other chronic pain; E03.9 Hypothyroidism, unspecified; D64.9 Anemia, unspecified; E86.0 Dehydration; Z79.890 Hormone replacement therapy; Z79.899 Other long term (current) drug therapy; Z87.442 Personal history of urinary calculi; Z87.11 Personal history of peptic ulcer disease; Z90.411 Acquired partial absence of pancreas; Z87.19 Personal history of other diseases of the digestive system; Z88.5 Allergy status to narcotic agent; Z88.8 Allergy status to other drugs, medicaments and biological substances
CPT/HCPCS: 36415; 74018; 74176; 74177; 78227; 80048; 80053; 81001; 83605; 83690; 83735; 85025; 87040; 87086; 87635; 96374; 99285

== ENCOUNTER 2021-07-09 11:52 | Emergency (ER) | payer OTHER ==
[2021-07-09 12:12] VITALS: BP 124/78; PULSE 70; RESP 18; TEMP 99.4
[2021-07-09] MEDS ORDERED: ACETAMINOPHEN TAB 325 MG TAB PO STA (13:48)
[2021-07-09] MEDS ORDERED: IBUPROFEN 600 MG TAB PO STA (13:48)
[2021-07-09 14:24] LABS: ALT 9 U/L (4-34); AST 16 U/L (14-36); African American GFR (CKD) >90 (>60 ml/min/1.73 sqM); Alkaline Phosphatase 92 U/L (38-126); Anion Gap 9 mmol/L; Blood Urea Nitrogen 9 mg/dL (7-17); Calcium 9.3 mg/dL (8.4-10.2); Carbon Dioxide 24 mmol/L (22-30); Chloride 106 mmol/L (98-107); Glucose 116 mg/dL (74-99); Non-African American GFR(CKD) 84 (>60 ml/min/1.73 sqM); Potassium 3.9 mmol/L (3.5-5.1); Sodium 139 mmol/L (137-145); Total Bilirubin 0.5 mg/dL (0.2-1.3)
--- NOTE | 2021-07-09 14:36 | ED ---
General Adult HPI - General Chief complaint: Extremity Injury, Upper Stated complaint: High Fever, Recheck Time Seen by Provider: 07/09/21 13:32 Source: patient, RN notes reviewed Mode of arrival: ambulatory Limitations: no limitations - History of Present Illness Initial comments: Patient is a 41-year-old female presents emergency room complaining of right elbow pain. She notes she was recently discharged in the hospital after several days. She notes that on the last day she was getting potassium to IV in the nurse noted that it was infiltrating her arm. She was observed for over day due to pain and nausea. She notes that today her right elbow has swollen up his become tender and mildly erythematous. She notes she came in for evaluation ma ke sure there was no abscess or severe issue going on. She was otherwise well- appearing. She denied any other issues or complaints. She denied any chest pain shortness of breath headache nausea vomiting diarrhea constipation fever fatigue chills. - Related Data Home Medications Medication Instructions Recorded Confirmed ALPRAZolam [Xanax] 0.5 mg PO DAILY 06/12/21 07/03/21 Dextroamphetamine/Amphetamine 20 mg PO BID 06/12/21 07/03/21 [Adderall] Levothyroxine Sodium [Synthroid] 125 mcg PO DAILY 06/12/21 07/03/21 Clotrimazole/Betameth Cream 1 applic TOPICAL BID 07/03/21 07/03/21 [Lotrisone] atenoloL [Tenormin] 50 mg PO BID 07/03/21 07/03/21 Previous Rx's Medication Instructions Recorded Pantoprazole [Protonix] 40 mg PO AC-BRKFST #30 tab 07/08/21 hydrALAZINE HCL [Apresoline] 50 mg PO TID #90 tab 07/08/21 Allergies Allergy/AdvReac Type Severity Reaction Status Date / Time metoclopramide [From Reglan] Allergy Rash/Hives Verified 07/09/21 12:11 morphine Allergy Rash/Hives Verified 07/09/21 12:11 Penicillins Allergy Anaphylaxis Verified 07/09/21 12:11 Review of Systems ROS Statement: Those systems with pertinent positive or pertinent negative responses have been documented in the HPI. ROS Other: All systems not noted in ROS Statement are negative. Past Medical History Past Medical History: GERD/Reflux, Hypertension, Thyroid Disorder Additional Past Medical History / Comment(s): Bowel obstruction History of Any Multi-Drug Resistant Organisms: None Reported Past Surgical History: Section Additional Past Surgical History / Comment(s): Abd. Anastomosis, Truncal Vagatomy, Omental mass excision. Past Anesthesia/Blood Transfusion Reactions: No Reported Reaction Past Psychological History: Anxiety, Depression Smoking Status: Former smoker Past Alcohol Use History: None Reported Past Drug Use History: None Reported - Past Family History Mother Family Medical History: No Reported History General Exam Limitations: no limitations General appearance: alert, in no apparent distress Head exam: Present: atraumatic, normocephalic, normal inspection Eye exam: Present: normal appearance, PERRL, EOMI. Absent: scleral icterus, conjunctival injection, periorbital swelling ENT exam: Present: normal exam, mucous membranes moist Neck exam: Present: normal inspection Respiratory exam: Present: normal lung sounds bilaterally. Absent: respiratory distress, wheezes, rales, rhonchi, stridor Cardiovascular Exam: Present: regular rate, normal rhythm, normal heart sounds. Absent: systolic murmur, diastolic murmur, rubs, gallop, clicks Right Elbow exam: Present: full ROM, tenderness (Over the medial aspect), swelling (Medial aspect), erythema (Minimal over the medial aspect). Absent: normal inspection, abrasion, laceration, ecchymosis, deformity, crepitus, dislocation Neurological exam: Present: alert, oriented X3 Psychiatric exam: Present: normal affect, normal mood Skin exam: Present: warm, dry, intact, normal color. Absent: rash Course Vital Signs 07/09/21 12:08 Temperature 99.4 F Pulse Rate 70 Respiratory 18 Rate Blood Pressure 124/78 O2 Sat by Pulse 98 Oximetry Medical Decision Making - Medical Decision Making 41-year-old female complaining of right elbow pain after IV potassium infiltrated. Basic labs, ultrasound of right upper extremity, 650 mg of Tylenol, 600 mg of Motrin ordered. Ultrasound shows a basilic vein thrombosis. Ultrasound was contacted and discussed over the phone stating that the thrombus is greater than 2 cm away from deep structures. Patient will be instructed to repeat ultrasound in 7-10 days. Case discussed with Dr. Cortes, patient can discharge home with follow-up [facility]. - Lab Data Result diagrams: 07/09/21 14:02 07/09/21 14:02 Lab Results 07/09/21 07/09/21 Range/Units 14:02 14:02 WBC 12.2 H (3.8-10.6) k/uL RBC 4.80 (3.80-5.40) m/uL Hgb 11.2 L (11.4-16.0) gm/dL Hct 36.1 (34.0-46.0) % MCV 75.1 L (80.0-100.0) fL MCH 23.4 L (25.0-35.0) pg MCHC 31.1 (31.0-37.0) g/dL RDW 18.7 H (11.5-15.5) % Plt Count 325 (150-450) k/uL MPV 8.4 Neutrophils % 81 % Lymphocytes % 11 % Monocytes % 6 % Eosinophils % 1 % Basophils % 1 % Neutrophils # 9.8 H (1.3-7.7) k/uL Lymphocytes # 1.3 (1.0-4.8) k/uL Monocytes # 0.7 (0-1.0) k/uL Eosinophils # 0.1 (0-0.7) k/uL Basophils # 0.1 (0-0.2) k/uL Hypochromasia Slight Anisocytosis Slight Microcytosis Moderate Sodium 139 (137-145) mmol/L Potassium 3.9 (3.5-5.1) mmol/L Chloride 106 (98-107) mmol/L Carbon Dioxide 24 (22-30) mmol/L Anion Gap 9 mmol/L BUN 9 (7-17) mg/dL Creatinine 0.86 (0.52-1.04) mg/dL Est GFR (CKD-EPI)AfAm >90 (>60 ml/min/1.73 sqM) Est GFR (CKD-EPI)NonAf 84 (>60 ml/min/1.73 sqM) Glucose 116 H (74-99) mg/dL Calcium 9.3 (8.4-10.2) mg/dL Total Bilirubin 0.5 (0.2-1.3) mg/dL AST 16 (14-36) U/L ALT 9 (4-34) U/L Alkaline Phosphatase 92 (38-126) U/L Total Protein 7.0 (6.3-8.2) g/dL Albumin 4.0 (3.5-5.0) g/dL Disposition Clinical Impression: Basilic vein thrombosis Disposition: HOME SELF-CARE Condition: Stable Instructions (If sedation given, give patient instructions): Hypercoagulation (ED) Additional Instructions: Please return to the Emergency Department if symptoms worsen or any other concerns. Follow-up with primary care 1-2 days. Repeat ultrasound in 7-10 days. Take Tylenol and Motrin as needed for pain. Is patient prescribed a controlled substance at d/c from ED?: No Referrals: Darryl Charles MD [Primary Care Provider] - 1-2 days Time of Disposition: 15:48
--- NOTE | 2021-07-09 14:46 | US ---
EXAMINATION TYPE: US venous doppler duplex UE RT DATE OF EXAM: 07/09/2021 COMPARISON: NONE CLINICAL HISTORY: swelling/pain in elbow. Recent IV SIDE PERFORMED: Right arm Grayscale, color Doppler, spectral Doppler imaging performed of the deep veins of right upper extremi ty. There is normal flow, compressibility and vascular waveforms. Ascites portions of the right internal jugular vein, right subclavian vein, axillary vein, brachial vein, ulnar and radial veins are unremar kable. The right basilic vein shows low-level internal echoes, lack of color flow and compressibility. Right Arm: Negative for DVT Thrombus seen in the basilic vein of the right arm in area of pain, there are edema channels present locally. IMPRESSION: No evidence of deep venous thrombosis. There is superficial venous thrombosis present right basilic v ein.
[2021-07-09 15:15] LABS: Anisocytosis Slight; Basophils # (A) 0.1 k/uL (0-0.2); Basophils % (A) 1 %; Eosinophils # (A) 0.1 k/uL (0-0.7); Eosinophils % (A) 1 %; HCT 36.1 % (34.0-46.0); HGB 11.2 gm/dL (11.4-16.0); Hypochromasia Slight; Lymphocytes # (A) 1.3 k/uL (1.0-4.8); Lymphocytes % (A) 11 %; MCH 23.4 pg (25.0-35.0); MCHC 31.1 g/dL (31.0-37.0); MCV 75.1 fL (80.0-100.0); Mean Platelet Volume 8.4; Microcytosis Moderate; Monocytes # (A) 0.7 k/uL (0-1.0); Monocytes % (A) 6 %; Neutrophils # (A) 9.8 k/uL (1.3-7.7); Neutrophils % (A) 81 %; Platelet Count 325 k/uL (150-450); RDW 18.7 % (11.5-15.5); WBC 12.2 k/uL (3.8-10.6)
== END 2021-07-09 16:08 | disposition home or self-care (01) ==
LOC: EC 11:52
DX: I82.611 Acute embolism and thrombosis of superficial veins of right upper extremity (principal); I10 Essential (primary) hypertension; F32.9 Major depressive disorder, single episode, unspecified; F41.9 Anxiety disorder, unspecified; K21.9 Gastro-esophageal reflux disease without esophagitis; Z87.891 Personal history of nicotine dependence; Z79.890 Hormone replacement therapy; Z79.899 Other long term (current) drug therapy; Z88.0 Allergy status to penicillin; Z88.8 Allergy status to other drugs, medicaments and biological substances
CPT/HCPCS: 36415; 80053; 85025; 99284